=== PATIENT | female | born 1990 | race Caucasian/White ===

== ENCOUNTER → 2017-12-18 | Outpatient (CLI) | payer BC ==
[2017-12-18 10:27] LABS: BASO % 0.2 %; BASO ABS # 0.02 K/uL (0-0.2); HEMATOCRIT 37.9 % (37-47); HEMOGLOBIN 13.4 g/dL (12.0-16.0); IG# 0.03 K/uL (0.00-0.02); LYMPH % 28.7 %; LYMPH ABS # 3.01 K/uL (1.2-3.4); MEAN CELL VOLUME 84.2 fL (80-100); MEAN CORPUSCULAR HEMOGLOBIN 29.8 pg (25-34); MEAN CORPUSCULAR HGB CONC 35.4 g/dl (32-36); MONO % 7.2 %; MONO ABS # 0.75 K/uL (0.11-0.59); NEUT % 62.6 %; NEUT ABS # 6.57 K/uL (1.4-6.5); PLATELET COUNT 331 K/uL (130-400); RED CELL DISTRIBUTION WIDTH SD 39.3 fL (36.4-46.3); WHITE BLOOD COUNT 10.48 K/uL (4.8-10.8)
== END | disposition home or self-care (01) ==
LOC: C.LAB1850 09:07 → MERGE 09:07
PROVIDERS: ATTEND Obstetrics & Gynecology
DX: Z34.01 Encounter for supervision of normal first pregnancy, first trimester (principal); Z3A.00 Weeks of gestation of pregnancy not specified

== ENCOUNTER → 2017-12-18 | Outpatient (CLI) | payer BC | END | disposition home or self-care (01) | LOC: MERGE 13:16 → C.LABSPEC 13:16 | PROVIDERS: ATTEND Obstetrics & Gynecology | DX: Z34.01 Encounter for supervision of normal first pregnancy, first trimester (principal); Z3A.00 Weeks of gestation of pregnancy not specified ==

== ENCOUNTER → 2018-02-26 | Outpatient (CLI) | payer OTHER | END | disposition home or self-care (01) | LOC: C.LAB1850 07:32 | PROVIDERS: ATTEND Obstetrics & Gynecology | DX: O28.1 Abnormal biochemical finding on antenatal screening of mother (principal) ==

== ENCOUNTER 2018-08-06 07:24 | Inpatient (IN) ==
[2018-08-06] MEDS ORDERED: OXYTOCIN 30 UNITS/500 ML BAG IV PRN ×2 (07:49→07:51)
[2018-08-06] MEDS ORDERED: LACTATED RINGER'S 1,000 ML IV PRN ×3 (07:49→12:54)
[2018-08-06 08:12] LABS: Hematocrit (blood only) 34.3 % (37-47); Hemoglobin 11.6 g/dL (12.0-16.0); Mean Corpuscular Volume 84.9 fL (80-100); Mean Platelet Volume 12.3 fL (7.4-10.4); Platelet Count 190 K/uL (130-400); RDW Coefficient of Variation 14.9 % (11.5-14.5); RDW Standard Deviation 46.4 fL (36.4-46.3); Red Blood Count 4.04 M/uL (4.2-5.4); White Blood Count 11.62 K/uL (4.8-10.8)
[2018-08-06 08:13] LABS: Mean Corpuscular Hgb Conc 33.8 g/dL (32-36)
[2018-08-06] MEDS: LACTATED RINGER'S 1,000 ML IV SCH ×5 (08:13→20:11)
--- NOTE | 2018-08-06 08:42 | History & Physical Report ---
Date of Service August 06, 2018 Assessment & Plan (1) Encounter for induction of labor: induction of labor, /-2 on presentation to labor and delivery floor, still considering pain management plan (2) with 41 completed weeks gestation: planned induction of labor - fetus category one History of Present Illness Chief Complaint: Induction of labor Primary Care Provider: Violet Solano Filomena Mitchell is a 28 y.o with IUP at 41 2/7 weeks who presents to labor and delivery for induction of labor for prolonged /late term . She had patiño balloon placed here last night and had patiño balloon fall out once getting onto labor and delivery floor this morning. She reports some vaginal spotting overnight, reports she feels baby moving, has not had contractions. She reports she was treated for a UTI about 1.5 months ago with a 5 day course of Macrobid, otherwise no other complications noted. Labs: O+/ab-/rubella immune/rpr non-reactive/hepB negative/gtt x 2 normal/ declined quad screen/GBS negative Family History (non-biological): Spouse - healthy/unremarkable; Spouse sister - DM1; Spouse's grandmother - colon cancer; Spouse's Aunt - amado's disease Allergies Allergy/AdvReac Type Severity Reaction Status Date / Time amoxicillin Allergy Rash Verified 07/21/18 09:50 Penicillins Allergy Rash Verified 07/21/18 09:49 Home Medications Home Medications Medication Instructions Recorded Confirmed Type PNV cmb#95-ferrous fumarate-FA 1 tabs PO DAILY 08/05/18 08/06/18 History [] Patient History Medical History Anxiety and depression history of, no medications currently Surgical History [place] teeth extracted Social History marital status: Current Living Situation: Spouse Other Information That Helps Us Care for You: No Feels Safe at Home: Yes Smoking Status: Never smoker Do You Dip or Chew Tobacco: No Second Hand Exposure: No Tobacco Cessation Education Requested by Patient: No Hx Alcohol Use: No Hx Substance Use: No Beliefs That Will Affect Care: None Preferred Language: Liberian Communication Ability: Effective Business Support Professional Required: No 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, no abnormal paps Review of Systems All systems reviewed & are unremarkable except as noted in HPI & below Physical Exam 2 Vital Signs (Past 24 Hours): Last Vital Signs Temp 36.9 C 08/06/18 07:45 Pulse 100 H 08/06/18 07:45 Resp 20 08/06/18 07:45 BP 125/75 08/06/18 07:45 Constitutional: WD/WN, vitals as above Respiratory: normal respiratory effort, lungs clear to auscultation Cardiovascular: RRR, no murmur, no edema Gastrointestinal (Abdomen): Percussion/Palpation: abdomen nontender gravid Neurologic: moves all extremities and awake Psychiatric: Affect: euthymic affect Genitourinary: OB Exam Monitor Tracing: + external FHT monitor used and + category I Cervix exam performed by Dr. Estevez - 4cm dilation/60% effacement/ -2 station Code Status & VTE Plan Code Status Full code Monitoring External Monitor Baseline 145 with moderate variability, accels present, no decels Tocodynamometer mild irregular contractions Supervising Physician Co-Signing Physician Notes Resident Physician Supervision Note: I was present with Dr. Livingston during the history and exam. I discussed the case with the resident and agree with the findings and plan as documented in the note. Any exceptions or clarifications are listed here: Induction for postdates , uncomplicated , gbs neg. Patiño fell out this am and /-2. Fetus category one. Plan pitocin augmentation, arom as appropriate, epidural on request. Anticipate . Documented By: Isamar Estevez MD, FACOG
--- NOTE | 2018-08-06 09:15 | History & Physical Report ---
Date of Service August 06, 2018 Assessment & Plan (1) Encounter for induction of labor: induction of labor, /-2 on presentation to labor and delivery floor, still considering pain management plan (2) with 41 completed weeks gestation: planned induction of labor History of Present Illness Primary Care Provider: Violet Solano Filomena Mitchell is a 28 y.o with IUP at 41 2/7 weeks who presents to labor and delivery for induction of labor for prolonged /late term . She had patiño balloon placed here last night and had patiño balloon fall out once getting onto labor and delivery floor this morning. She reports some vaginal spotting overnight, reports she feels baby moving, has not had contractions. She reports she was treated for a UTI about 1.5 months ago with a 5 day course of Macrobid, otherwise no other complications noted. Labs: O+/ab-/rubella immune/rpr non-reactive/hepB negative/gtt x 2 normal/ declined quad screen/GBS negative Allergies Allergy/AdvReac Type Severity Reaction Status Date / Time amoxicillin Allergy Rash Verified 07/21/18 09:50 Penicillins Allergy Rash Verified 07/21/18 09:49 Home Medications Home Medications Medication Instructions Recorded Confirmed Type PNV cmb#95-ferrous fumarate-FA 1 tabs PO DAILY 08/05/18 08/06/18 History [] Patient History Social History marital status: Current Living Situation: Spouse Other Information That Helps Us Care for You: No Feels Safe at Home: Yes Smoking Status: Never smoker Do You Dip or Chew Tobacco: No Second Hand Exposure: No Tobacco Cessation Education Requested by Patient: No Hx Alcohol Use: No Hx Substance Use: No Beliefs That Will Affect Care: None Preferred Language: Belgian Communication Ability: Effective Plow Shaker Required: No Physical Exam 2 Vital Signs (Past 24 Hours): Last Vital Signs Temp 36.9 C 08/06/18 07:45 Pulse 80 08/06/18 09:07 Resp 20 08/06/18 07:45 BP 130/67 08/06/18 09:07 Constitutional: WD/WN, vitals as above Respiratory: normal respiratory effort, lungs clear to auscultation Cardiovascular: RRR, no murmur, no edema Gastrointestinal (Abdomen): Percussion/Palpation: abdomen nontender Neurologic: moves all extremities and awake Psychiatric: Affect: euthymic affect
[2018-08-06] MEDS ORDERED: INFLUENZA VIRUS QUAD VACCINE 0.5 ML SYR IM ONE (09:30)
[2018-08-06] MEDS ORDERED: INFLUENZA ADMINISTRATION CHARGE ONE (09:30)
[2018-08-06] MEDS ORDERED: ePHEDrine sulfate 50 MG/ML AMP ONE (12:12)
[2018-08-06] MEDS ORDERED: BUPIVACAINE 0.25% 30 ML VIAL ONE (12:12)
[2018-08-06] MEDS ORDERED: fentaNYL 2MCG/ML ROPIV 1.25MG/ML 100 ML BAG EPI ONE (12:13)
[2018-08-06] MEDS ORDERED: fentaNYL citrate 100 MCG/2 ML VIAL ONE (12:13)
--- NOTE | 2018-08-06 12:16 | Labor Progress Brief Note ---
Date of Service August 06, 2018 Subjective Notes contractions, rates 11/10 Assessment & Plan (1) with 41 completed weeks gestation: fetus category one (2) Encounter for induction of labor: Plan epidural then arom. Physical Exam 2 Vital Signs (Past 24 Hours): Last Vital Signs Temp 36.4 C L 08/06/18 11:00 Pulse 70 08/06/18 12:11 Resp 20 08/06/18 11:00 BP 125/71 08/06/18 12:11 Pulse Ox 91 08/06/18 12:11 Constitutional: WD/WN, vitals as above Genitourinary: cx--4/75/-2 toco--q2-4min efm--130s with mod variability, +accels , no decels
--- NOTE | 2018-08-06 12:39 | Anesthesiology Consultation ---
Date of Service August 06, 2018 Assessment & Plan (1) Encounter for pre-operative examination: Chart Review Chart Review: Acceptable Risk for Labor Epidural Consults Requested none ASA ASA2 Proposed Anesthesia Anesthesia Type: Labor Epidural and CSE Risk / Benefits Reviewed With: PT / POA / Parent / Guardian, Accepts Plan and Informed Consent Obtained NPO Date Last Intake of Fluids: 08/06/18 Time Last Intake of Fluids: 07:00 Date Last Intake of Solids: 08/06/18 Time Last Intake of Solids: 07:00 History Height/Weight Height: 4 ft 9 in Weight: 72.121 kg Allergies Allergy/AdvReac Type Severity Reaction Status Date / Time amoxicillin Allergy Rash Verified 07/21/18 09:50 Penicillins Allergy Rash Verified 07/21/18 09:49 Medications Home Medications Medication Instructions Recorded Confirmed Last Taken PNV cmb#95-ferrous fumarate-FA 1 tabs PO DAILY 08/05/18 08/06/18 08/06/18 06:30 [] Active Medications Generic Name Dose Route Start Last Admin Trade Name Freq PRN Reason Stop Dose Admin Lactated Ringer's 1,000 mls @ 125 mls/hr 08/06/18 08:00 08/06/18 12:38 Lr IV 08/08/18 07:59 999 mls/hr .Q8H CALDERON Administration Oxytocin 30 units in 500 mls @ 5 mls/hr 08/06/18 07:51 08/06/18 09:30 Pitocin IV 08/08/18 07:50 0.3 units/hr .Q24H PRN 5 mls/hr Labor Induction/Augmentation Titration Protocol 0.3 UNITS/HR Past Medical History Medical History Anxiety and depression history of, no medications currently Past Family History Family History Grandfather (Maternal) Lung cancer Father No problems noted. Mother No problems noted. Past Surgical History Surgical History [place] teeth extracted Past Anesthesia History No Hx of Anesthesia Complications and No Family Hx of Anesthesia Complications History of PONV No Motion Sickness Screening History of Motion Sickness: Yes Social History Smoking Status: Never smoker Do You Dip or Chew Tobacco: No Hx Alcohol Use: No Hx Substance Use: No Exercise / Class Metabolic Activity II 4-5 Yardwork/Stairs/Walk up hill Review of Systems no chest pain or sob Physical Exam Vital Signs Last Vital Signs Temp 36.4 C L 08/06/18 11:00 Pulse 81 08/06/18 12:36 Resp 20 08/06/18 11:00 BP 125/71 08/06/18 12:11 Pulse Ox 88 L 08/06/18 12:36 ENMT Mouth: no dentition abnormality Thyromental Distance: > or= 3.5 Finger Breadths Mallampati Class: II Neck normal visual inspection Respiratory normal respiratory effort Cardiovascular Rate/Rhythm: regular rate and regular rhythm Musculoskeletal Spine: no pain with cervical ROM Neurologic moves all extremities Psychiatric Orientation: alert and oriented x 3 Testing Laboratory Results 08/06/18 08:00 Blood Type O Positive 08/06/18 08:00 Antibody Screen NEGATIVE 08/06/18 08:00
[2018-08-06] MEDS ORDERED: ePHEDrine sulfate 50 MG/ML AMP IV PRN (12:54)
[2018-08-06] MEDS ORDERED: NALBUPHINE HCL INJ 10 MG/ML AMP IV PRN (12:54)
[2018-08-06] MEDS ORDERED: NALOXONE HCL 1 MG in SODIUM CHLORIDE 0.9% 1000ML 1,000 ML IV PRN (12:54)
[2018-08-06] MEDS ORDERED: NALOXONE HCL 0.4 MG/1 ML VIAL/CARP IV PRN (12:54)
[2018-08-06] MEDS ORDERED: DiphenhydrAMINE HCL 50 MG/ML VIAL IV PRN (12:54)
--- NOTE | 2018-08-06 14:18 | Labor Progress Brief Note ---
Date of Service August 06, 2018 Subjective comfortable after epidural. Assessment & Plan (1) with 41 completed weeks gestation: (2) Encounter for induction of labor: continue current plan. fetus category one. Physical Exam 2 Vital Signs (Past 24 Hours): Last Vital Signs Temp 37.1 C 08/06/18 14:00 Pulse 80 08/06/18 14:12 Resp 20 08/06/18 14:00 BP 120/75 08/06/18 14:12 Pulse Ox 99 08/06/18 14:11 Genitourinary: cx--4/75/-2 arom--clear toco--q2-4min, pit at 11 efm--130s with mod variability, accels present, no decels
--- NOTE | 2018-08-06 18:46 | Labor Progress Brief Note ---
Date of Service August 06, 2018 Subjective comfortable Assessment & Plan (1) with 41 completed weeks gestation: category one strip (2) Encounter for induction of labor: iupc placed, aim for >200mvus. Physical Exam 2 Vital Signs (Past 24 Hours): Last Vital Signs Temp 37.1 C 08/06/18 18:30 Pulse 75 08/06/18 18:41 Resp 20 08/06/18 18:30 BP 120/76 08/06/18 18:41 Pulse Ox 99 08/06/18 18:41 Constitutional: WD/WN, vitals as above Genitourinary: cx--75/-2 toco--q2-3min, pit at 15 iupc placed efm--150 with mod variability, accels present, no decels
[2018-08-06] MEDS ORDERED: LACTATED RINGER'S 500 ML IV ONE (18:47)
--- NOTE | 2018-08-06 22:03 | Labor Progress Brief Note ---
Date of Service August 06, 2018 Subjective comfortable Assessment & Plan (1) with 41 completed weeks gestation: category one (2) Encounter for induction of labor: continue pitocin to keep mvus greater than 2000 and adequate. Physical Exam 2 Vital Signs (Past 24 Hours): Last Vital Signs Temp 36.8 C 08/06/18 21:10 Pulse 73 08/06/18 21:56 Resp 18 08/06/18 21:10 BP 120/67 08/06/18 21:56 Pulse Ox 97 08/06/18 21:56 Constitutional: WD/WN, vitals as above Genitourinary: cx--4/100/-2 toco--q2-3min, pit at 21, mvus have recently within the last hour or so been > 200 efm--50s with moderate variability, accels to 170s, no decels
[2018-08-06] MEDS: fentaNYL 2MCG/ML ROPIV 1.25MG/ML 100 ML BAG EPI PRN (22:10)
[2018-08-07] MEDS: LACTATED RINGER'S 1,000 ML IV SCH ×2 (01:05→06:03)
[2018-08-07] MEDS: fentaNYL 2MCG/ML ROPIV 1.25MG/ML 100 ML BAG EPI PRN ×2 (01:05→06:09)
[2018-08-07] MEDS: ONDANSETRON INJ 2 MG/ML 2 ML VIAL IV PRN ×2 (01:10→06:44)
[2018-08-07] MEDS ORDERED: Nursing to Pharmacy Communication ONE (01:18)
--- NOTE | 2018-08-07 02:07 | Labor Progress Brief Note ---
Date of Service August 07, 2018 Subjective comfortable but feeling pressure Assessment & Plan (1) with 41 completed weeks gestation: fetus category one (2) Encounter for induction of labor: Will stop pitocin for a washout period of 20 min, then restart at 15 and go up again until achieve adequate contractions. Physical Exam 2 Vital Signs (Past 24 Hours): Last Vital Signs Temp 36.8 C 08/07/18 01:10 Pulse 75 08/07/18 02:01 Resp 18 08/07/18 01:29 BP 124/75 08/07/18 01:56 Pulse Ox 98 08/07/18 02:01 Constitutional: WD/WN, vitals as above Genitourinary: cx--4-5/100/-2 toco--q2-3min, pit at 30 for 2 hours, mvus still not adequate efm--150s wtih mod variability, accels present , no decels
--- NOTE | 2018-08-07 08:03 | Labor Progress Brief Note ---
Date of Service August 07, 2018 Subjective comfortable Assessment & Plan (1) Encounter for induction of labor: (2) Failure to progress in first stage of labor: Plan to proceed with c/s as now no change for 16 hours after arom and unable to get contractions in an adequate pattern. r/b/se of surgery discussed including the risks of anesthesia, bleeding, transfusion, infection, damage to surrounding structures, need for further surgery/hospitalization, injury to baby. Discussed other risks of surgery including heart attack , blood clot stroke and . Consent reviewed and signed. Patient has had borderline uop for the last several hours despite bolus and increased rate. Expect third spacing. Physical Exam 2 Vital Signs (Past 24 Hours): Last Vital Signs Temp 37.1 C 08/07/18 07:00 Pulse 90 08/07/18 07:57 Resp 18 08/07/18 07:00 BP 134/92 08/07/18 07:57 Pulse Ox 97 08/07/18 07:56 Constitutional: WD/WN, vitals as above Genitourinary: cx--4-5/100/-2 toco--q2-3, not close to adequate, pit at 30 for about 2 hrs. efm--150s with mod variability, accels to 170s, no decels
[2018-08-07] MEDS ORDERED: miSOPROStol 200 MCG TAB ONE (08:08)
[2018-08-07] MEDS ORDERED: CITRIC ACID/SODIUM CITRATE 15 ML UDC ONE (08:09)
[2018-08-07] MEDS ORDERED: CEFAZOLIN 2,000 MG in SYRINGE 0 ML IV STA (08:12)
[2018-08-07] MEDS ORDERED: CITRIC ACID/SODIUM CITRATE 15 ML UDC PO STA (08:13)
[2018-08-07] MEDS ORDERED: LACTATED RINGER'S 1,000 ML IV SCH ×2 (08:15→09:03)
[2018-08-07] MEDS ORDERED: LIDOCAINE/EPINEPHRINE 2% 1:200,000 20 ML SDV ONE (08:20)
--- NOTE | 2018-08-07 08:21 | Anesthesiology Consultation ---
Date of Service August 07, 2018 Assessment & Plan (1) Encounter for pre-operative examination: Chart Review Chart Review: Acceptable Risk for Surgery NPO Date Last Intake of Fluids: 08/06/18 Time Last Intake of Fluids: 07:00 Date Last Intake of Solids: 08/06/18 Time Last Intake of Solids: 07:00 History Surgery Operation Date: 08/07/18 08:00 Proposed Procedures p Section in LD - Isamar Estevez MD, FACOG Height/Weight Height: 4 ft 9 in Weight: 72.121 kg Allergies Allergy/AdvReac Type Severity Reaction Status Date / Time amoxicillin Allergy Rash Verified 07/21/18 09:50 Penicillins Allergy Rash Verified 07/21/18 09:49 Medications Home Medications Medication Instructions Recorded Confirmed Last Taken PNV cmb#95-ferrous fumarate-FA 1 tabs PO DAILY 08/05/18 08/06/18 08/06/18 06:30 [] Active Medications Generic Name Dose Route Start Last Admin Trade Name Freq PRN Reason Stop Dose Admin Lactated Ringer's 1,000 mls @ 125 mls/hr 08/06/18 08:00 08/07/18 07:09 Lr IV 08/08/18 07:59 175 mls/hr .Q8H CALDERON Infusion Oxytocin 30 units in 500 mls @ 30 mls/hr 08/06/18 07:51 08/07/18 07:09 Pitocin IV 08/08/18 07:50 1.8 units/hr .[id number] PRN 30 mls/hr Labor Induction/Augmentation Titration Protocol 1.8 UNITS/HR Lactated Ringer's 1,000 mls @ 999 mls/hr 08/07/18 08:15 08/07/18 08:21 Lr IV 08/07/18 09:15 999 mls/hr .Q1H1M CALDERON Administration Ondansetron HCl 4 mg 08/06/18 12:54 08/07/18 06:44 Zofran IV 08/07/18 12:53 4 mg Q6H PRN Administration Nausea And Vomiting Ropivacaine 100 ml 08/06/18 12:54 08/07/18 06:09 Epidural (L&D) EPI 08/07/18 12:53 100 ml PRN PRN Administration Pain R/T Labor Protocol Past Medical History Medical History Anxiety and depression history of, no medications currently Past Family History Family History Grandfather (Maternal) Lung cancer Father No problems noted. Mother No problems noted. Past Surgical History Surgical History [place] teeth extracted Social History Smoking Status: Never smoker Do You Dip or Chew Tobacco: No Hx Alcohol Use: No Hx Substance Use: No Physical Exam Vital Signs Last Vital Signs Temp 37.1 C 08/07/18 07:00 Pulse 69 08/07/18 08:21 Resp 18 08/07/18 07:00 BP 136/72 08/07/18 08:12 Pulse Ox 95 08/07/18 08:21 Testing Laboratory Results 08/06/18 08:00 Blood Type O Positive 08/06/18 08:00 Antibody Screen NEGATIVE 08/06/18 08:00
[2018-08-07] MEDS ORDERED: ONDANSETRON INJ 2 MG/ML 2 ML VIAL ONE ×2 (09:23→09:37)
[2018-08-07] MEDS ORDERED: DEXAMETHASONE SOD INJ 4 MG/ML VIAL ONE (09:23)
[2018-08-07] MEDS ORDERED: OXYTOCIN 10 UNITS/ML VIAL ONE (09:23)
[2018-08-07] MEDS ORDERED: MoRPHine SULFATE PF 1 MG/ML 10 ML AMP/VIAL ONE (09:24)
[2018-08-07] MEDS ORDERED: DIPHTHERIA/TETANUS/PERTUSSIS 0.5 ML SYR/VIAL IM ONE (09:34)
[2018-08-07] MEDS ORDERED: HYDROCORTISONE ACETATE 25 MG SUPP PR PRN (09:34)
[2018-08-07] MEDS ORDERED: MAGNESIUM HYDROXIDE SUSP 30 ML UDC PO PRN (09:34)
[2018-08-07] MEDS ORDERED: SENNA 8.6 MG TAB PO PRN (09:34)
[2018-08-07] MEDS ORDERED: SUPERCREAM 0.870% 15 GM JAR EXT PRN (09:34)
[2018-08-07] MEDS ORDERED: BENZOCAINE 20% AER SPR 82.5 GM CAN EXT PRN (09:34)
[2018-08-07] MEDS ORDERED: miSOPROStol 200 MCG TAB PR ONE (09:40)
--- NOTE | 2018-08-07 09:42 | Post Operative Brief Note ---
Immediate Post Op Note v1 Date of Surgery August 07, 2018 Pre & Post Diagnosis preop diagnosis at 41 weeks failure to induce Postop diagnosis same Operation Date: 08/07/18 08:00 <No data on this case meets the specified criteria> Procedure procedure--primary low transverse Operation Date: 08/07/18 08:00 <No data on this case meets the specified criteria> Surgeon Isamar Estevez MD, FACOG Manager Merchandising Dr. horowitz Estimated Blood Loss 800 Findings Consistent with Post-Op Diagnosis
[2018-08-07] MEDS ORDERED: OXYTOCIN 20 UNITS in LACTATED RINGER'S 1,000 ML IV SCH (10:00)
[2018-08-07] MEDS ORDERED: NALOXONE HCL 0.4 MG/1 ML VIAL/CARP IV PRN (10:27)
[2018-08-07] MEDS ORDERED: ONDANSETRON INJ 2 MG/ML 2 ML VIAL IV PRN (10:27)
[2018-08-07] MEDS ORDERED: DiphenhydrAMINE HCL 50 MG/ML VIAL IV PRN (10:27)
[2018-08-07] MEDS ORDERED: NALOXONE HCL 0.08 MG in SYRINGE 1.8 ML IV PRN (10:27)
[2018-08-07] MEDS ORDERED: MoRPHine SULFATE 2 MG/ML CARP IV PRN (10:27)
[2018-08-07] MEDS ORDERED: LACTATED RINGER'S 500 ML IV PRN (10:27)
[2018-08-07] MEDS ORDERED: NALBUPHINE HCL INJ 10 MG/ML AMP IV PRN (10:27)
[2018-08-07] MEDS ORDERED: ePHEDrine sulfate 50 MG/ML AMP IV PRN (10:27)
[2018-08-07] MEDS ORDERED: MoRPHine SULFATE PF 1 MG/ML 10 ML AMP/VIAL INT SPINAL SCH (10:27)
[2018-08-07] MEDS ORDERED: MEPERIDINE HCL 25 MG/ML CARP IV PRN (10:27)
[2018-08-07] MEDS ORDERED: NALOXONE HCL 1 MG in SODIUM CHLORIDE 0.9% 1000ML 1,000 ML IV PRN (10:27)
--- NOTE | 2018-08-07 10:29 | Operative Report ---
DATE OF OPERATION: 08/07/2018 PREOPERATIVE DIAGNOSES: 1. Intrauterine at 41 and 2/7 weeks. 2. Failure to induce. POSTOPERATIVE DIAGNOSES: 1. Intrauterine at 41 and 2/7 weeks. 2. Failure to induce. PROCEDURE: Primary low transverse section. SURGEON: Isamar Estevez MD BLENDER CONVEYOR OPERATOR: April Ruiz MD ESTIMATED BLOOD LOSS: 800 mL. FLUIDS: 1000 mL. URINE OUTPUT: 300 mL of concentrated urine drained from the bladder at the end of the procedure. ANESTHESIA: Epidural. INDICATIONS: Filomena is a 28-year-old 1, para 0 who presented for induction at 41 and 1/7 weeks. She underwent a May bulb for cervical ripening, when it was removed, she was 4 cm and 80% effaced. I could not get her induced despite 16 hours of ruptured membranes and Pitocin augmentation. The patient had an IUPC and I could never get her into an adequate contraction pattern. FINDINGS: Viable male infant in LOT presentation, 9 pounds 3 ounces, Apgars pending. Normal uterus, tubes, and ovaries were noted bilaterally. There was a right paratubal cyst. Apgars pending. DESCRIPTION OF PROCEDURE: The patient was taken to the operating room where she was identified verbally and by bracelet. She was transferred to the operating table and placed in a leftward tilt. A May catheter had previously been placed. Her epidural was dosed. She was prepped and draped in normal sterile fashion. Her epidural was found to be adequate. A Pfannenstiel skin incision was made with a knife. This was taken down to the underlying layer of fascia with the knife. Bleeding was attended to with Bovie electrocautery. The fascia was incised in the midline with the knife and taken out laterally with scissors. The superior edge of the fascial incision was grasped, elevated and the underlying layer of rectus muscle was taken off bluntly and with scissors. In a similar fashion, the inferior edge of the fascial incision was grasped, elevated and the underlying layer of rectus muscle was taken off bluntly and with scissors. The muscles were bluntly in the midline and the peritoneum was entered bluntly. It was taken superiorly and inferiorly with good visualization of the bladder. The incision was stretched, the bladder blade was placed. Vesicouterine peritoneum was identified and entered with scissors and taken out laterally with scissors. The bladder flap was created digitally. The bladder blade was replaced. A hysterotomy incision was made with the knife. Clear fluid was noted upon entering the uterus. The hysterotomy incision was stretched with the hat stock laminating machine operator's fingers. The hat stock laminating machine operator's hand was placed into the incision and the head was severely stuck within the pelvis; however, it was able to be removed atraumatically up into the incision. The head was delivered through the incision. We tried 1 attempt with the vacuum with 1 pop-off and then we were able to deliver the head through the incision. There was no nuchal cord and the rest of the was then delivered by rotating the and eventually delivering the anterior arm. There was immediate cry on the operative field. The nose and mouth were bulb suctioned. The cord was clamped and cut. The infant was handed off to waiting staff development coordinator rn for drying and attention. The placenta was manually extracted. The uterus was cleared of all clot debris and trailing membranes with moistened laparotomy sponges and ring forceps. The hysterotomy incision was repaired in 2 layers, the first a running locked layer of 0 Vicryl, the second in an imbricating layer. Hemostasis was fairly good from the incision at that point in time. There was some uterine atony, which was attended to with IV Pitocin and direct placement of Hemabate into the uterine muscle. The posterior cul-de-sac was cleared of all clot and debris. The tubes and ovaries were normal. There was a right paratubal cyst. The uterus was reanteriorized. There was some oozing at the right edge of the incision which was taken care of with a [id number] suture of 0 Vicryl and then Mary Kay was placed over the incision after hemostasis was noted to be good. The rectus muscles were reapproximated in the midline with interrupted sutures of 0 Vicryl. The rectus muscles were then examined and found to be hemostatic. The fascia was repaired with 0 Vicryl starting at the corners and meeting in the midline. The subcuticular tissue was copiously irrigated. Bleeding was attended to with Bovie electrocautery and the skin was then closed with a subcuticular stitch of 4-0 Vicryl. All sponge, lap and needle counts were correct x2. The patient tolerated the procedure well. Before she was transferred to the bed, 800 mcg of Cytotec was placed vaginally. The patient was transferred to recovery and mother and baby doing well at the end of the delivery. I attest to the content of the Intraoperative Record and any orders documented therein. Any exception s are noted below.
[2018-08-07] MEDS ORDERED: DC INTRASPINAL MORPHINE SCH (10:30)
[2018-08-07] MEDS ORDERED: SODIUM CHLORIDE 0.9% 1000ML 1,000 ML IV SCH (10:30)
[2018-08-07] MEDS ORDERED: NO NARCOTICS OR SEDATIVES SCH (10:30)
[2018-08-07] MEDS ORDERED: MoRPHine SULFATE 2 MG/ML CARP ONE (10:35)
[2018-08-07] MEDS ORDERED: ARISTA ABSORBABLE HEMOSTAT 3GM TOP ONE (11:01)
[2018-08-07] MEDS ORDERED: CARBOPROST TROMETHAMINE 250 MCG/ML AMPUL IM ONE (11:01)
[2018-08-07] MEDS ORDERED: ACETAMINOPHEN 1,000 MG/100 ML VIAL IV ONE (11:41)
--- NOTE | 2018-08-07 11:47 | Anesthesiology Progress Note ---
Date of Service August 07, 2018 Anesthesia Post Procedure Vital Signs Vital Signs: Temp Pulse Resp BP Pulse Ox 08/07/18 11:39 90 157/82 H 08/07/18 11:36 90 90 08/07/18 11:33 91 H 89 L 08/07/18 11:31 88 90 08/07/18 11:28 82 141/71 H 08/07/18 11:26 93 H 90 08/07/18 11:23 38.7 C H 08/07/18 11:21 84 89 L 08/07/18 11:18 86 141/67 H 08/07/18 11:16 90 90 08/07/18 11:11 90 91 08/07/18 11:09 89 129/82 08/07/18 11:06 87 90 08/07/18 11:01 88 92 08/07/18 10:58 86 128/62 08/07/18 10:56 85 92 08/07/18 10:51 88 93 08/07/18 10:50 86 18 141/67 H 90 08/07/18 10:48 86 148/67 H 94 08/07/18 10:46 92 H 92 08/07/18 10:43 92 H 93 08/07/18 10:41 94 H 93 08/07/18 10:40 88 18 92 08/07/18 10:38 89 149/69 H 08/07/18 10:37 92 H 92 08/07/18 10:36 90 96 08/07/18 10:31 90 98 08/07/18 10:30 88 18 92 08/07/18 10:26 99 H 98 08/07/18 10:21 96 H 81 L 08/07/18 10:20 88 18 92 08/07/18 10:16 105 H 98 08/07/18 10:11 108 H 98 08/07/18 10:10 88 18 93 08/07/18 10:06 115 H 96 08/07/18 10:01 117 H 93 08/07/18 10:00 88 18 93 08/07/18 09:59 218 H 170/68 H 08/07/18 09:57 117 H 93 08/07/18 09:56 109 H 167/72 H 99 08/07/18 09:53 129 H 179/122 H 08/07/18 09:51 122 H 93 08/07/18 09:50 37 C 18 08/07/18 08:43 82 137/69 08/07/18 08:40 79 136/78 08/07/18 08:38 72 149/80 H 08/07/18 08:36 71 151/81 H 97 08/07/18 08:31 71 139/77 96 08/07/18 08:26 71 147/79 H 96 08/07/18 08:21 69 95 08/07/18 08:16 70 96 08/07/18 08:12 67 136/72 08/07/18 08:11 69 97 08/07/18 08:06 76 97 08/07/18 08:01 72 97 08/07/18 07:57 90 134/92 08/07/18 07:56 85 97 08/07/18 07:55 90 88 L 08/07/18 07:51 77 96 08/07/18 07:46 69 92 08/07/18 07:42 67 133/64 08/07/18 07:41 68 94 08/07/18 07:36 66 94 08/07/18 07:31 71 94 08/07/18 07:27 65 115/64 08/07/18 07:26 68 96 08/07/18 07:21 69 95 08/07/18 07:16 69 96 08/07/18 07:11 70 128/73 94 08/07/18 07:06 70 95 08/07/18 07:01 69 93 08/07/18 07:00 37.1 C 18 08/07/18 06:57 71 135/74 08/07/18 06:56 70 93 08/07/18 06:51 67 94 08/07/18 06:46 69 96 08/07/18 06:41 68 127/74 96 08/07/18 06:36 70 97 08/07/18 06:31 75 95 08/07/18 06:26 74 127/73 95 08/07/18 06:21 78 95 08/07/18 06:16 73 95 08/07/18 06:11 71 129/76 97 08/07/18 06:06 86 97 08/07/18 06:01 76 98 08/07/18 06:00 18 08/07/18 05:56 74 124/73 98 08/07/18 05:51 87 98 08/07/18 05:46 91 H 96 08/07/18 05:41 76 122/68 94 08/07/18 05:36 77 94 08/07/18 05:31 73 94 08/07/18 05:27 74 126/71 08/07/18 05:26 76 95 08/07/18 05:21 76 96 08/07/18 05:16 76 96 08/07/18 05:15 37.0 C 18 08/07/18 05:12 77 126/71 08/07/18 05:11 76 97 08/07/18 05:06 86 96 08/07/18 05:01 78 94 08/07/18 04:56 75 112/62 94 08/07/18 04:51 78 95 08/07/18 04:46 73 93 08/07/18 04:41 81 117/66 93 08/07/18 04:36 75 92 08/07/18 04:31 73 93 08/07/18 04:27 72 119/62 08/07/18 04:26 73 93 08/07/18 04:21 75 93 08/07/18 04:16 71 93 08/07/18 04:12 71 105/56 L 08/07/18 04:11 76 96 08/07/18 04:06 74 97 08/07/18 04:01 72 97 08/07/18 03:56 67 123/65 94 08/07/18 03:51 67 93 08/07/18 03:46 67 94 08/07/18 03:41 74 127/67 94 08/07/18 03:36 69 93 08/07/18 03:31 67 93 08/07/18 03:30 16 08/07/18 03:26 67 121/64 94 08/07/18 03:21 66 93 08/07/18 03:16 66 94 08/07/18 03:15 36.8 C 08/07/18 03:12 69 118/62 08/07/18 03:11 69 94 08/07/18 03:06 67 94 08/07/18 03:01 66 94 05 02:57 65 132/71 08/07/18 02:56 68 97 05 02:51 70 97 12/19 02:46 69 96 01/05/19 02:42 73 119/72 08/07/18 02:41 73 97 08/07/18 02:36 68 94 08/07/18 02:31 67 94 08/07/18 02:30 18 08/07/18 02:26 66 121/67 94 08/07/18 02:21 66 95 08/07/18 02:16 65 96 08/07/18 02:12 62 130/69 08/07/18 02:11 65 97 08/07/18 02:06 69 97 08/07/18 02:01 75 98 08/07/18 01:56 74 124/75 97 08/07/18 01:51 65 94 08/07/18 01:46 68 96 08/07/18 01:42 66 128/74 08/07/18 01:41 81 97 08/07/18 01:36 70 96 08/07/18 01:31 70 98 08/07/18 01:29 18 08/07/18 01:27 73 138/77 08/07/18 01:26 69 98 08/07/18 01:21 65 97 08/07/18 01:16 74 96 08/07/18 01:13 64 132/69 08/07/18 01:11 68 98 08/07/18 01:10 36.8 C 20 08/07/18 01:06 71 98 08/07/18 01:01 71 99 08/07/18 00:56 69 127/68 96 08/07/18 00:51 68 97 08/07/18 00:46 69 98 08/07/18 00:42 70 133/71 08/07/18 00:41 69 97 08/07/18 00:36 72 97 08/07/18 00:31 69 97 08/07/18 00:27 69 132/73 08/07/18 00:26 71 98 08/07/18 00:21 69 98 08/07/18 00:16 73 99 08/07/18 00:11 80 120/81 98 08/07/18 00:06 77 100 08/07/18 00:01 74 18 98 08/06/18 23:57 78 125/82 08/06/18 23:56 79 99 08/06/18 23:51 85 98 08/06/18 23:49 87 88 L 01/04/19 23:46 84 100 08/06/18 23:42 84 126/92 08/06/18 23:41 85 98 08/06/18 23:36 70 100 08/06/18 23:31 66 98 08/06/18 23:26 67 131/77 98 08/06/18 23:21 66 98 08/06/18 23:16 64 98 08/06/18 23:12 63 133/75 08/06/18 23:11 66 100 08/06/18 23:06 66 98 08/06/18 23:01 68 98 08/06/18 23:00 37.0 C 18 08/06/18 22:57 69 133/73 08/06/18 22:56 70 99 08/06/18 22:51 73 99 08/06/18 22:46 72 98 08/06/18 22:41 69 124/71 96 08/06/18 22:36 68 98 08/06/18 22:31 71 98 08/06/18 22:27 69 128/75 08/06/18 22:26 72 99 08/06/18 22:21 80 96 08/06/18 22:16 72 99 08/06/18 22:12 76 123/72 08/06/18 22:11 71 98 08/06/18 22:06 74 97 08/06/18 22:01 70 96 08/06/18 22:00 18 08/06/18 21:56 73 120/67 97 08/06/18 21:51 75 97 08/06/18 21:46 76 99 08/06/18 21:42 75 118/69 08/06/18 21:41 75 97 08/06/18 21:36 73 96 08/06/18 21:31 73 97 08/06/18 21:28 74 119/67 08/06/18 21:26 80 98 08/06/18 21:21 78 97 08/06/18 21:16 83 97 08/06/18 21:12 102 H 115/77 08/06/18 21:11 83 97 08/06/18 21:10 36.8 C 18 08/06/18 21:06 82 97 08/06/18 21:01 80 98 08/06/18 21:00 20 08/06/18 20:58 75 116/73 08/06/18 20:56 83 97 08/06/18 20:51 75 95 08/06/18 20:46 75 96 08/06/18 20:42 71 115/72 08/06/18 20:41 72 97 08/06/18 20:36 74 97 08/06/18 20:35 85 86 L 08/06/18 20:31 77 98 08/06/18 20:30 20 08/06/18 20:27 79 124/75 08/06/18 20:26 78 98 08/06/18 20:21 83 98 08/06/18 20:16 77 97 08/06/18 20:12 82 120/77 08/06/18 20:11 79 97 08/06/18 20:06 87 98 08/06/18 20:01 88 97 08/06/18 20:00 37.1 C 20 08/06/18 19:58 92 H 131/82 08/06/18 19:56 81 98 08/06/18 19:51 81 97 08/06/18 19:46 71 97 08/06/18 19:42 81 129/81 08/06/18 19:41 86 99 08/06/18 19:36 84 98 08/06/18 19:31 73 98 08/06/18 19:30 18 08/06/18 19:27 86 121/78 08/06/18 19:26 79 98 08/06/18 19:21 81 97 08/06/18 19:16 82 98 08/06/18 19:12 76 127/75 08/06/18 19:11 80 98 08/06/18 19:06 81 98 08/06/18 19:01 80 99 08/06/18 19:00 20 08/06/18 18:58 74 117/75 08/06/18 18:56 81 99 08/06/18 18:51 89 96 08/06/18 18:46 73 98 08/06/18 18:41 75 120/76 99 08/06/18 18:36 78 99 08/06/18 18:31 86 99 08/06/18 18:30 37.1 C 20 08/06/18 18:28 92 H 119/76 08/06/18 18:26 88 99 08/06/18 18:21 83 99 08/06/18 18:16 90 99 08/06/18 18:12 75 126/67 08/06/18 18:11 82 99 08/06/18 18:06 86 100 08/06/18 18:01 81 99 08/06/18 18:00 20 08/06/18 17:57 75 122/58 L 08/06/18 17:56 81 98 08/06/18 17:51 83 97 08/06/18 17:46 76 99 08/06/18 17:43 81 115/67 08/06/18 17:41 74 97 08/06/18 17:36 69 100 08/06/18 17:31 77 100 08/06/18 17:30 36.8 C 18 08/06/18 17:28 78 111/57 L 08/06/18 17:26 74 100 08/06/18 17:21 76 100 08/06/18 17:16 84 98 08/06/18 17:13 69 104/61 08/06/18 17:11 77 96 08/06/18 17:06 84 97 08/06/18 17:01 73 99 08/06/18 17:00 20 08/06/18 16:58 71 104/55 L 08/06/18 16:56 91 H 98 08/06/18 16:51 89 97 08/06/18 16:46 90 97 08/06/18 16:43 77 114/61 08/06/18 16:41 79 97 08/06/18 16:36 75 98 08/06/18 16:31 69 97 08/06/18 16:30 18 08/06/18 16:27 71 114/73 08/06/18 16:26 70 97 08/06/18 16:21 73 97 08/06/18 16:16 70 97 08/06/18 16:12 70 115/64 08/06/18 16:11 66 96 08/06/18 16:06 70 95 08/06/18 16:01 74 96 08/06/18 16:00 20 08/06/18 15:58 65 113/67 08/06/18 15:56 80 96 08/06/18 15:51 68 96 08/06/18 15:46 67 95 08/06/18 15:42 80 98/64 L 08/06/18 15:41 75 96 08/06/18 15:36 72 96 08/06/18 15:31 71 96 08/06/18 15:30 36.7 C 20 08/06/18 15:28 73 113/57 L 08/06/18 15:26 74 96 08/06/18 15:21 83 97 08/06/18 15:16 76 98 08/06/18 15:14 71 117/58 L 08/06/18 15:11 74 96 08/06/18 15:06 78 96 08/06/18 15:01 83 96 08/06/18 15:00 18 08/06/18 14:58 73 109/67 08/06/18 14:56 78 96 08/06/18 14:51 71 97 08/06/18 14:46 71 96 08/06/18 14:44 71 118/67 08/06/18 14:41 81 96 08/06/18 14:36 74 96 08/06/18 14:31 82 98 08/06/18 14:30 20 08/06/18 14:27 80 112/75 08/06/18 14:26 80 96 08/06/18 14:21 83 96 08/06/18 14:16 71 98 08/06/18 14:12 80 120/75 08/06/18 14:11 84 99 08/06/18 14:06 80 98 08/06/18 14:01 90 98 08/06/18 14:00 37.1 C 20 08/06/18 13:57 78 94/56 L 08/06/18 13:56 80 98 08/06/18 13:51 73 98 08/06/18 13:46 71 96 08/06/18 13:42 86 96/58 L 08/06/18 13:41 81 97 08/06/18 13:36 95 H 98 08/06/18 13:31 74 97 08/06/18 13:30 18 08/06/18 13:28 74 110/59 L 08/06/18 13:26 73 97 08/06/18 13:21 74 99 08/06/18 13:16 73 98 08/06/18 13:11 93 H 108/58 L 96 08/06/18 13:09 81 99/57 L 08/06/18 13:07 83 92/58 L 08/06/18 13:06 74 96 08/06/18 13:05 37.1 C 79 20 100/60 08/06/18 13:03 79 105/60 08/06/18 13:01 81 105/58 L 96 08/06/18 13:00 37.1 C 18 08/06/18 12:59 77 103/57 L 08/06/18 12:57 76 18 102/57 L 08/06/18 12:56 79 104/58 L 97 08/06/18 12:54 91 H 129/72 08/06/18 12:51 80 98 08/06/18 12:46 95 H 98 08/06/18 12:41 75 98 08/06/18 12:36 81 88 L 08/06/18 12:31 75 92 08/06/18 12:26 73 91 08/06/18 12:22 85 86 L 08/06/18 12:21 86 88 L 08/06/18 12:16 83 90 08/06/18 12:11 70 125/71 91 Pain Intensity Abdomen: Pain Intensity: 4 Notes Mental Status: alert / awake / arousable and participated in evaluation Nausea / Vomiting: adequately controlled Pain: adequately controlled Airway Patency, RR, SpO2: stable & adequate BP & HR: stable & adequate Hydration State: stable & adequate Neuraxial Anesthesia: was administered and sensory block resolved Anesthetic Complications: no major complications apparent and Pt Satisfied with anesthetic care Notes: The patient is doing well. She is moving her sensory and motor block have resolved. Her pain is well controlled. I informed the patient and her of the signs and symptoms of epidural abscess/hematoma including but not limited to sudden loss of bowel or bladder continence, sudden numbness or weakness, severe back pain, abnormal discharge from the back or redness, and fever. I instructed the patient to come to the ED with any of these symptoms and to make the ED aware that they had a recent epidural. The patient understands and agrees.
[2018-08-07] MEDS: SIMETHICONE 80 MG CHEW PO SCH ×3 (17:24→21:50)
[2018-08-07] MEDS ORDERED: KETOROLAC 30 MG/ML VIAL IV ONE (19:30)
--- NOTE | 2018-08-07 20:28 | Communication Note ---
Date of Service: August 07, 2018 Patient seen and examined given requirement of 4L NCO2 to keep sats 95%, when she was only on 2L prior. Also, patient recently ate a large amount of food and then became nauseated and had emesis. Now feeling a bit better in that regard. Patient denies CP, SOB or respiratory distress, she "feels normal." Pain is not very well controlled per patient, but was just given 30mg IV Toradol about ten minutes before I talked with her, so hoping for better relief soon. Heron has been small, RN who is at bedside agrees. Patient denies calf or leg pain and says the spinal has worn off pretty much completely, she feels her feet normally with SCD's squeezing or doctor touching her feet. Family at bedside comments that the urine catheter has been filling much faster lately. Exam: Vitals reviewed. At time when I am in room, pulse 82 and pulse ox 95% on 4L NCO2 BP 120/75, P66 Gen: Alert, NAD. Speaking normally, breathing without undue effort, and wearing NCO2. Cor: RRR, no r/m/g. Lungs: mild crackles at bilateral bases posteriorly. No abnormal sounds when auscultated anteriorly. Abd: Distended but nontender. Fundus palpated 1cm below umbilicus, firm and nontender. Dressing in place c/d/i. Extremities with trace equal bilateral edema, SCD's opened to allow flexion of foot and palpation of calf; normal bilaterally. May in place, draining clear yellow. I/O: nearly 3L positive for visit so far. Plan: Pulm edema due to third spacing after prolonged high dose pitocin use and section this morning. Lots of tissue edema noted during delivery and urine output was decreased around the time of delivery. It is now improving rapidly, but patient has a lot of extra fluid on board. Stop IV fluids now, continue to sip oral fluids and provide antiemetic prn. Urine output now well above adequate and may need time to diurese. Will get CXR now too given crackles at bases. Doubt DVT/PE at this time so will continue SCDs.
[2018-08-07 21:12] LABS: Hematocrit (blood only) 32.9 % (37-47); Hemoglobin 11.1 g/dL (12.0-16.0)
--- NOTE | 2018-08-07 21:49 | XRay Report ---
XR chest 1V portable CLINICAL HISTORY: decreased O2 saturation, , ? fluid overl COMPARISON STUDY: No previous studies for comparison. FINDINGS: Mild cardia megaly. Parenchymal prominence of the mid to lower lung regions bilaterally. Pu lmonary apices are clear. IMPRESSION: Potential developing pulmonary edema The above report was generated using voice recognition software. It may contain grammatical, syntax or spelling errors. Electronically signed by: Ramesh Vásquez M.D. 08/07/2018 9:47 PM
[2018-08-07] MEDS: DOCUSATE SODIUM 100 MG CAP PO SCH (21:50)
[2018-08-08] MEDS ORDERED: KETOROLAC TROMETHAMINE 15 MG/ML VIAL IV STA (03:37)
[2018-08-08] MEDS ORDERED: KETOROLAC TROMETHAMINE 15 MG/ML VIAL IV PRN (03:38)
[2018-08-08] MEDS ORDERED: MEPERIDINE HCL 50 MG/ML CARP IV PRN (04:27)
[2018-08-08] MEDS ORDERED: OXYCODONE/ACETAMINOPHEN 5mg/325mg TAB PO PRN (04:27)
[2018-08-08] MEDS ORDERED: PROMETHAZINE HCL 25 MG in SODIUM CHLORIDE 0.9% 50 ML IV PRN ×2 (04:27→17:14)
[2018-08-08] MEDS ORDERED: ONDANSETRON INJ 2 MG/ML 2 ML VIAL IV PRN (04:27)
[2018-08-08] MEDS ORDERED: DiphenhydrAMINE HCL 50 MG/ML VIAL IV PRN (04:27)
[2018-08-08 06:41] LABS: Basophils # (auto) 0.01 K/uL (0-0.2); Basophils % (auto) 0.1 %; Eosinophils # (auto) 0.01 K/uL (0-0.5); Eosinophils % (auto) 0.1 %; Hematocrit (blood only) 31.4 % (37-47); Hemoglobin 10.4 g/dL (12.0-16.0); Immature Granulocytes # (auto) 0.06 K/uL (0.00-0.02); Immature Granulocytes % (auto) 0.4 %; Lymphocytes # (auto) 1.01 K/uL (1.2-3.4); Lymphocytes % (auto) 6.1 %; Mean Corpuscular Hgb Conc 33.1 g/dL (32-36); Mean Corpuscular Volume 85.1 fL (80-100); Mean Platelet Volume 11.8 fL (7.4-10.4); Monocytes # (auto) 0.47 K/uL (0.11-0.59); Monocytes % (auto) 2.9 %; Neutrophils # (auto) 14.87 K/uL (1.4-6.5); Neutrophils % (auto) 90.4 %; Platelet Count 158 K/uL (130-400); RDW Coefficient of Variation 15.1 % (11.5-14.5); RDW Standard Deviation 46.9 fL (36.4-46.3); Red Blood Count 3.69 M/uL (4.2-5.4); White Blood Count 16.43 K/uL (4.8-10.8)
--- NOTE | 2018-08-08 07:25 | Obstetrical Progress Note ---
Date of Service August 08, 2018 Assessment & Plan (1) Failure to progress in first stage of labor: POD#1 from [facility] for failed induction and large in this very petite female. High doses of pitocin were utilized in hopes of inducing labor, which may have contributed to significant third spacing and ultimately pulmonary edema. Fluids stopped, and patient has continued to diurese, and oxygen saturations are improved from last night while oxygen requirements are decreasing. Continue to wean off NCO2 as tolerated. Patient also is suspicious for ileus and will take diet to clears this morning and encourage ambulation when able. Subjective Ambulation: limited ambulation Voiding: patiño catheter in place Passing Gas:: No Diet Tolerance:: nausea/vomiting Lochia:: Small Patient feels very bloated and has not been able to pass gas. Denies any SOB or CP. Has not been nauseated since last night but has also not tried to eat anything since her prior emesis. Physical Exam Vital Signs (Past 24 Hours) Last Vital Signs Temp 37.3 C 08/08/18 03:40 Pulse 91 H 08/08/18 03:40 Resp 18 08/08/18 04:20 BP 109/75 08/08/18 03:40 Pulse Ox 96 08/08/18 04:20 Gen: NAD Resp: Nonlabored breathing, no distress, NCO2 in place. Abd: soft, distended. Fundus @ umb, incision with dressing removed is c/d/i with steristrips Ext: Neg Emerita's, improved bilateral edema in feet, now trace.
--- NOTE | 2018-08-08 07:37 | Anesthesiology Progress Note ---
Date of Service August 08, 2018 Anesthesia Post Procedure Vital Signs Vital Signs: Temp Pulse Pulse Resp BP BP Pulse Ox 08/08/18 04:20 18 96 08/08/18 03:40 37.3 C 91 H 18 109/75 97 08/08/18 02:30 18 98 08/08/18 01:30 18 98 08/08/18 00:35 36.8 C 72 20 112/73 100 08/08/18 00:30 20 100 08/07/18 23:30 20 96 08/07/18 22:20 18 96 08/07/18 19:55 37.1 C 74 18 150/82 H 94 08/07/18 18:05 18 94 08/07/18 17:15 20 90 08/07/18 16:30 20 92 08/07/18 15:30 20 91 08/07/18 14:30 20 92 08/07/18 13:30 36.5 C 66 18 120/75 94 08/07/18 12:40 37.7 C H 83 20 130/63 92 08/07/18 12:15 37.7 C H 18 08/07/18 12:01 79 86 L 08/07/18 11:56 79 88 L 08/07/18 11:51 83 89 L 08/07/18 11:50 79 18 86 L 08/07/18 11:46 79 90 08/07/18 11:41 91 H 89 L 08/07/18 11:39 90 157/82 H 08/07/18 11:36 90 90 08/07/18 11:33 91 H 89 L 08/07/18 11:31 88 90 08/07/18 11:28 82 141/71 H 08/07/18 11:26 93 H 90 08/07/18 11:23 38.7 C H 08/07/18 11:21 84 89 L 08/07/18 11:18 86 141/67 H 08/07/18 11:16 90 90 08/07/18 11:11 90 91 08/07/18 11:09 89 129/82 08/07/18 11:06 87 90 08/07/18 11:01 88 92 08/07/18 10:58 86 128/62 08/07/18 10:56 85 92 08/07/18 10:51 88 93 08/07/18 10:50 86 18 141/67 H 90 08/07/18 10:48 86 148/67 H 94 08/07/18 10:46 92 H 92 08/07/18 10:43 92 H 93 08/07/18 10:41 94 H 93 08/07/18 10:40 88 18 92 08/07/18 10:38 89 149/69 H 08/07/18 10:37 92 H 92 08/07/18 10:36 90 96 08/07/18 10:31 90 98 08/07/18 10:30 88 18 92 08/07/18 10:26 99 H 98 08/07/18 10:21 96 H 81 L 08/07/18 10:20 88 18 92 08/07/18 10:16 105 H 98 08/07/18 10:11 108 H 98 08/07/18 10:10 88 18 93 08/07/18 10:06 115 H 96 08/07/18 10:01 117 H 93 08/07/18 10:00 88 18 93 08/07/18 09:59 218 H 170/68 H 08/07/18 09:57 117 H 93 08/07/18 09:56 109 H 167/72 H 99 08/07/18 09:53 129 H 179/122 H 08/07/18 09:51 122 H 93 08/07/18 09:50 37 C 18 08/07/18 08:43 82 137/69 08/07/18 08:40 79 136/78 08/07/18 08:38 72 149/80 H 08/07/18 08:36 71 151/81 H 97 08/07/18 08:31 71 139/77 96 08/07/18 08:26 71 147/79 H 96 08/07/18 08:21 69 95 08/07/18 08:16 70 96 08/07/18 08:12 67 136/72 08/07/18 08:11 69 97 08/07/18 08:06 76 97 08/07/18 08:01 72 97 08/07/18 07:57 90 134/92 08/07/18 07:56 85 97 08/07/18 07:55 90 88 L 08/07/18 07:51 77 96 08/07/18 07:46 69 92 08/07/18 07:42 67 133/64 08/07/18 07:41 68 94 08/07/18 07:36 66 94 Pain Intensity Abdomen: Pain Intensity: 4 Notes Mental Status: alert / awake / arousable and participated in evaluation Nausea / Vomiting: adequately controlled Pain: adequately controlled Airway Patency, RR, SpO2: stable & adequate BP & HR: stable & adequate Hydration State: stable & adequate Anesthetic Complications: no major complications apparent and Pt Satisfied with anesthetic care Notes: The patient is doing well. She is resting comfortably in bed. She did require 4l nc oxygen overnight due to pulmonary edema secondary to significant third spacing from prolongued pitocin infusion and fluids preoperatively. She has autodiuresed very well and continues to improve from this standpoint. The patient's sensory and motor block have resolved. She denies any pain. I informed the patient and her of the signs and symptoms of epidural abscess/hematoma including but not limited to sudden loss of bowel or bladder continence, sudden numbness or weakness, severe back pain, abnormal discharge from the back or redness, and fever. I instructed the patient to come to the ED with any of these symptoms and to make the ED aware that they had a recent epidural. The patient understands and agrees.
[2018-08-08] MEDS ORDERED: KETOROLAC 30 MG/ML VIAL IV ONE (10:59)
[2018-08-08] MEDS: SIMETHICONE 80 MG CHEW PO SCH ×3 (16:10→20:35)
[2018-08-08] MEDS ORDERED: CALCIUM CARBONATE 500 MG CHEWABLE TAB PO PRN (17:13)
[2018-08-08] MEDS: IBUPROFEN 600 MG TAB PO PRN (17:35)
[2018-08-08] MEDS ORDERED: BISACODYL 5 MG TABEC PO SCH (20:00)
--- NOTE | 2018-08-08 20:42 | Communication Note ---
Date of Service: August 08, 2018 Patient still struggling with abdominal distention and pain. No nausea/emesis, but had large loose BM that she was unable to restrain today. Has been passing some gas but the amount is decreasing and her distention is increasing along with her discomfort. No SOB, CP. Taking only clear liquids since some crackers this AM. Patient reports rare but LOUD bursts of [id number] bowel/abdominal sounds that are audible from across the room, several times today. Using simethicone (due for dose now and about to receive) Gen: Mild distress, but has good color to skin and is smiling. Cor: RRR Lungs: CTAB Abd: Marked distention. Tympany. Absent bowel sounds x4 quadrants with stethoscope. Incision c/d/i. Ext: Trace pedal edema. Plan: Pulm edema resolved and UOP has been good. Fluid balance better. Now having significant ileus and with the large loose stool and occasional bursts of loud bowel sounds I would plan an abd x-ray to r/o obstruction. Will keep to clear liquid diet but encourage small frequent sips, hoping to avoid need for resumption of IV fluids if possible. Will add reglan to meds. Patient has been doing a good job of ambulating and will be encouraged to continue.
[2018-08-08] MEDS: DOCUSATE SODIUM 100 MG CAP PO SCH (21:08)
[2018-08-08] MEDS: METOCLOPRAMIDE HCL INJ 5 MG/ML 2 ML VIAL IV SCH (21:11)
--- NOTE | 2018-08-08 21:53 | XRay Report ---
ABDOMEN 2 VIEWS CLINICAL HISTORY: Generalized abdominal pain. Recent /delivery. FINDINGS: Supine and erect portable abdominal radiographs are obtained. No prior studies are availabl e for comparison at the time of dictation. Correlation is made with chest x-ray dated 08/07/2018. No ev idence of intraperitoneal free air is seen. There are distended and gas-filled loops of small bowel w hich measure up to 4.6 cm in diameter. A large density in the pelvis likely represents the post gravi d uterus. There are no abnormal abdominal calcifications. The bony structures appear intact. There ar e left basilar airspace opacities. IMPRESSION: 1. There are distended and gas-filled loops of small bowel. This likely represents ileus given the re ported history of recent delivery. Small bowel obstruction could appear similar and clinical correlat ion will be required. 2. A large density projecting over the pelvis likely represents the post gravid uterus. 3. There are left basilar airspace opacities. This appears improved from yesterday. Electronically signed by: Hung Ortiz M.D. 08/08/2018 9:52 PM
--- NOTE | 2018-08-09 00:37 | Communication Note ---
Date of Service: August 09, 2018 Patient had copious bilious emesis. RN notified me, and I recommend at this point placing an NG tube and restarting some crystalloid IV. Patient informed of recommendations and reasoning. Explained that we will watch I/O to avoid fluid overload (though pitocin risk factor now gone) and use lower than standard adult rate due to patient's petite size. She is aware typical progression would be to allow 24 hr gut rest, then clamp tube and trial PO fluid , then remove tube, which will likely require an extension of her hospital stay. She and are agreeable.
[2018-08-09] MEDS: LACTATED RINGER'S 1,000 ML IV SCH ×2 (01:30→20:59)
[2018-08-09] MEDS ORDERED: PROMETHAZINE HCL 12.5 MG in SODIUM CHLORIDE 0.9% 50 ML IV ONE (01:55)
[2018-08-09] MEDS: METOCLOPRAMIDE HCL INJ 5 MG/ML 2 ML VIAL IV SCH ×3 (02:52→15:27)
[2018-08-09 06:31] LABS: Hematocrit (blood only) 31.2 % (37-47); Hemoglobin 10.3 g/dL (12.0-16.0)
[2018-08-09 07:02] LABS: Albumin Level 1.8 gm/dl (3.4-5.0); BUN Creatinine Ratio 15.6 (10-20); Calcium 8.3 mg/dl (8.5-10.1); Creatinine Clr Calc Pharmacy 91.3 ml/min; Est GFR (Non-African American) 108.7; Potassium 3.8 mmol/L (3.5-5.1)
[2018-08-09 07:05] LABS: Albumin Globulin Ratio 0.5 (0.9-2); Bilirubin,Total 0.3 mg/dl (0.2-1); Globulin 3.9 gm/dl (2.5-4.0); Total Protein 5.7 gm/dl (6.4-8.2)
[2018-08-09] MEDS ORDERED: CHLORASEPTIC 1.4% SOLN 180 ML BTL MT PRN (07:45)
--- NOTE | 2018-08-09 08:13 | Obstetrical Progress Note ---
Date of Service <Danny Livingston DO - Last Filed: 08/09/18 08:13> August 09, 2018 Assessment & Plan <Danny Livingston DO - Last Filed: 08/09/18 08:13> (1) delivery delivered: 28 y/o, , @ 41.3 continue post- care monitor and control pain POD #2 (2) Ileus, postoperative: Abdomen 2views ordered stat this morning for continued nausea and vomiting with NG tube in place continue with NG tube Metoclopramid 10mg IV q6h scheduled surgery consulted for care and management (3) with 41 completed weeks gestation: planned induction of labor with after failure to progress Day #:: 2 Subjective <Danny Livingston DO - Last Filed: 08/09/18 08:13> Ambulation: ambulating normally Voiding: no voiding problems Diet Tolerance:: NPO Current Pain Level(1-10): 0 Filomena had bilious vomiting with nausea overnight that required NG tube placement. Patient notes NG tube did not provide relief. She was still having vomiting with NG tube, nursing staff reported normal functioning of NG tube in intermittent suction. She also has been having numerous episodes of loose stools that she notes probably approx 6 episodes. She denies fever, chills, chest pain, shortness of breath. Physical Exam <Danny Livingston DO - Last Filed: 08/09/18 08:13> Vital Signs (Past 24 Hours) Last Vital Signs Temp 37 C 08/08/18 23:20 Pulse 70 08/08/18 23:20 Resp 16 08/08/18 23:20 BP 142/89 H 08/08/18 23:20 Pulse Ox 92 08/08/18 23:20 Constitutional WD/WN, vitals as above Respiratory normal respiratory effort; no respiratory distress and does not use accessory muscles mild rales to left posterior base with patient lying in left lateral position, right lung base is clear to auscultation in left lateral position Cardiovascular Rate/Rhythm: regular rate and regular rhythm Heart Sounds: no murmur Gastrointestinal (Abdomen) Percussion/Palpation: abdomen nontender diminished bowel sounds, incision site is clean, dry, and intact without any signs of infection Skin no rashes, warm and dry Neurologic moves all extremities and awake Psychiatric Orientation: alert Eye Contact: good eye contact Results & Data <Danny Livingston DO - Last Filed: 08/09/18 08:13> Laboratory Results Laboratory Results - last 24 hr 08/09/18 08/09/18 06:13 06:13 Hgb 10.3 L Hct 31.2 L Sodium 143 Potassium 3.8 Chloride 112 H Carbon Dioxide 24 Anion Gap 7.0 BUN 12 Creatinine 0.74 Est Cr Clr Drug Dosing 91.3 Est GFR ( Amer) 126.0 Est GFR (Non-Af Amer) 108.7 BUN/Creatinine Ratio 15.6 Glucose 98 Calcium 8.3 L Total Bilirubin 0.3 AST 17 ALT 15 Alkaline Phosphatase 108 Total Protein 5.7 L Albumin 1.8 L Globulin 3.9 Albumin/Globulin Ratio 0.5 L Medications Administered Calcium Carbonate (Tums) 1,500 mg PO Q8 PRN PRN Reason: Indigestion Stop: 09/07/18 17:12 Last Admin: 08/08/18 17:35 Dose: 1,500 mg Docusate Sodium (Colace) 100 mg PO BID [facility] Stop: 09/06/18 20:59 Last Admin: 08/08/18 21:08 Dose: Not Given Admin: 08/07/18 21:50 Dose: 100 mg Lactated Ringer's (Lr) 1,000 mls @ 100 mls/hr IV .Q10H [facility] Stop: 09/06/18 09:44 Last Infusion: 08/09/18 02:25 Dose: 100 mls/hr Infusion: 08/09/18 02:09 Dose: 0 mls/hr Admin: 08/09/18 01:30 Dose: 100 mls/hr Ibuprofen (Motrin) 600 mg PO Q4H PRN PRN Reason: Pain Stop: 09/06/18 09:33 Last Admin: 08/08/18 17:35 Dose: 600 mg Metoclopramide HCl (Reglan) 10 mg IV Q6H [facility] Stop: 08/09/18 20:59 Last Admin: 08/09/18 02:52 Dose: 10 mg Admin: 08/08/18 21:11 Dose: 10 mg Simethicone (Mylicon) 80 mg PO QID [facility] Stop: 09/06/18 12:59 Last Admin: 08/08/18 20:35 Dose: 80 mg Admin: 08/08/18 16:52 Dose: 80 mg Admin: 08/08/18 16:10 Dose: Not Given Admin: 08/07/18 21:50 Dose: 80 mg Admin: 08/07/18 18:41 Dose: 80 mg Admin: 08/07/18 17:24 Dose: Not Given <April Ruiz MD - Last Filed: 08/09/18 08:24> Co-Signing Physician Notes Patient seen this morning and exam done, discussion held with patient and . NGT placed around 1am for ongoing distention, emesis and loose stools. With placement of tube to low intermittent wall suction there was retrieval of appropriate bilious material. However, patient remains nauseated and has had emesis despite tube. Further, she continues with loose frequent stools. There is no single point of pain or lump to suggest an incarcerted hernia. There is no fever, no rebound or guarding. Abdomen is somewhat less tense / softer than it was at 1am but remains very distended and tympanitic. Imaging ordered again this morning and I have reviewed images, and received report just now. There continue to be large dilated gas-filled bowel loops, possible colon gas, and with pt in decubitus, air-fluid levels seen. NG tube position appears to be in the stomach. Will request surgery team see this patient, consult placed this morning.
--- NOTE | 2018-08-09 08:16 | XRay Report ---
XR abdomen min 2V CLINICAL HISTORY: ileus, NG tube in currently COMPARISON STUDY: 08/08/2018 FINDINGS: A nasogastric tube is visualized within the stomach. There is persistent gaseous distention of small bowel loops. There is a possibility of left colonic gas. There is no gas present within the pelvis, and soft tissue prominence the pelvis may be secondary to a post gravid uterus. No free air is visualized on the decubitus view. There are multiple air-fluid levels. IMPRESSION: 1. Persistent nonspecific bowel gas pattern with mildly dilated small bowel loops and multiple air-fl uid levels. 2. Nasogastric tube within the stomach 3. Soft tissue prominence of the pelvis, likely secondary to a post gravid uterus. Electronically signed by: Mandeep Salomon M.D. 08/09/2018 8:14 AM
[2018-08-09 08:57] LABS: Phosphorus 3.5 mg/dl (2.5-4.9)
[2018-08-09] MEDS ORDERED: BISACODYL 10 MG SUPP PR PRN (09:34)
[2018-08-09] MEDS ORDERED: ONDANSETRON INJ 2 MG/ML 2 ML VIAL IV PRN (09:59)
--- NOTE | 2018-08-09 10:17 | Surgery Consultation ---
Date of Consultation August 09, 2018 Assessment & Plan (1) Ileus, postoperative: XR slightly improved this morning, NG in ok position at 55 cm consider clamping trial later this evening or in AM if output decreases added prn zofran will follow History of Present Illness Attending Physician: Isamar Estevez MD, FACOG History of Present Illness 28 y/o female had 2 days ago developed abdominal pain and distention yesterday and N/V overnight. NG tube was placed. She had multiple loose BMs overnight but now decreasing this morning. No other flatus. Nausea is improved, having some dry heaves from NG. Allergies Allergy/AdvReac Type Severity Reaction Status Date / Time amoxicillin Allergy Rash Verified 07/21/18 09:50 Penicillins Allergy Rash Verified 07/21/18 09:49 Home Medications Home Medications Medication Instructions Recorded Confirmed Type PNV cmb#95-ferrous fumarate-FA 1 tabs PO DAILY 08/05/18 08/06/18 History [] Patient History Medical History Anxiety and depression history of, no medications currently Surgical History [place] teeth extracted Family History Grandfather (Maternal) Lung cancer Father No problems noted. Mother No problems noted. Social History marital status: Current Living Situation: Spouse Other Information That Helps Us Care for You: No Feels Safe at Home: Yes Smoking Status: Never smoker Do You Dip or Chew Tobacco: No Hx Alcohol Use: No Hx Substance Use: No Beliefs That Will Affect Care: None Preferred Language: Swedish Communication Ability: Effective Manager Quality Compliance Required: No Review of Systems Gastrointestinal: + nausea, + vomiting and + diarrhea/loose stools Physical Exam 2 Vital Signs (Past 24 Hours): Last Vital Signs Temp 37 C 08/08/18 23:20 Pulse 70 08/08/18 23:20 Resp 16 08/08/18 23:20 BP 142/89 H 08/08/18 23:20 Pulse Ox 92 08/08/18 23:20 Constitutional: WD/WN, vitals as above no acute distress Gastrointestinal (Abdomen): Inspection/Auscultation: + abdomen distended ( slightly) Percussion/Palpation: abdomen soft NG 475 last night, 150 past 4 hours
--- NOTE | 2018-08-09 12:25 | Progress Note ---
Date of Service August 09, 2018 Assessment & Plan (1) Ileus, postoperative: suspect ileus- cont NG- try clamping schedule- on Reglan may have been element of gastric distention. check Mg, Phos Will follow- Subjective pt with N/V, abd distention post C- section NG in place feeling better- small bm and positive flatus suspected ileus Physical Exam 2 Vital Signs (Past 24 Hours): Last Vital Signs Temp 36.8 C 08/09/18 07:30 Pulse 71 08/09/18 07:30 Resp 16 08/09/18 07:30 BP 115/71 08/09/18 07:30 Pulse Ox 95 08/09/18 07:30 awake, alert, no distress- affect good abd- mild-mod distention- not firm, no tenderness decreased bs
[2018-08-09] MEDS: SIMETHICONE 80 MG CHEW PO SCH ×2 (19:51→21:01)
[2018-08-09] MEDS: DOCUSATE SODIUM 100 MG CAP PO SCH (21:01)
--- NOTE | 2018-08-10 06:14 | Progress Note ---
Date of Service August 10, 2018 Assessment & Plan (1) Ileus, postoperative: discussed possible removal of NG and trial of liquids- she doesn't want to have NG replaced- so will clamp and try some liquids possible NG removal later today- encouraged ambulation check labs (C Diff was negative ) Subjective feels better- loose bms but less- C diff neg less output from NG had some ice Physical Exam 2 Vital Signs (Past 24 Hours): Last Vital Signs Temp 36.6 C 08/10/18 04:10 Pulse 62 08/10/18 04:10 Resp 18 08/10/18 04:10 BP 126/74 08/10/18 04:10 Pulse Ox 97 08/10/18 04:10 less distended, decreased bowel sounds min tenderness
[2018-08-10] MEDS: LACTATED RINGER'S 1,000 ML IV SCH ×2 (07:18→21:37)
--- NOTE | 2018-08-10 07:41 | Obstetrical Progress Note ---
Date of Service <Danny DO Miki - Last Filed: 08/10/18 07:41> August 10, 2018 Assessment & Plan <Danny DO Miki - Last Filed: 08/10/18 07:41> (1) delivery delivered: 28 y/o, , @ 41.3 continue post- care monitor and control pain POD #3 (2) Ileus, postoperative: resolving Her NG tube is clamped and she is tolerating that well. Plan is to trial clear liquids today and if tolerates well to remove NG tube. Ta for nausea appreciate surgery recs (3) with 41 completed weeks gestation: planned induction of labor with after failure to progress Subjective <Danny Livingston DO - Last Filed: 08/10/18 07:41> Ambulation: ambulating normally Voiding: no voiding problems Passing Gas:: Yes Diet Tolerance:: NPO Feeding Type:: breast feeding Current Pain Level(1-10): 0 Filomena states she feels improved today. Her diarrhea is resolving with scant amount. She had no vomiting episodes overnight. Her nausea is controlled with anti-emetics. Her NG tube is clamped and she is tolerating that well. Plan is to trial clear liquids today and if tolerates well to remove NG tube. Physical Exam <Danny Livingston DO - Last Filed: 08/10/18 07:41> Vital Signs (Past 24 Hours) Last Vital Signs Temp 36.6 C 08/10/18 04:10 Pulse 62 08/10/18 04:10 Resp 18 08/10/18 04:10 BP 126/74 08/10/18 04:10 Pulse Ox 97 08/10/18 04:10 Constitutional WD/WN, vitals as above Respiratory normal respiratory effort; no respiratory distress and does not use accessory muscles Cardiovascular Rate/Rhythm: regular rate and regular rhythm Heart Sounds: no murmur Gastrointestinal (Abdomen) Percussion/Palpation: abdomen nontender diminished bowel sounds, surgical incision site is clean, dry, intact without signs of infection. Skin no rashes, warm and dry Neurologic moves all extremities and awake Psychiatric Orientation: alert Eye Contact: good eye contact Results & Data <Danny Livingston DO - Last Filed: 08/10/18 07:41> Laboratory Results Laboratory Results - last 24 hr 01/07/19 01/07/19 06:13 14:20 Phosphorus 3.5 Magnesium 2.0 Stl C. diff Tox B Gene Neg C.diff Toxin B Medications Administered Calcium Carbonate (Tums) 1,500 mg PO Q8 PRN PRN Reason: Indigestion Stop: 09/07/18 17:12 Last Admin: 08/08/18 17:35 Dose: 1,500 mg Docusate Sodium (Colace) 100 mg PO BID [facility] Stop: 09/06/18 20:59 Last Admin: 08/09/18 21:01 Dose: Not Given Admin: 08/08/18 21:08 Dose: Not Given Admin: 08/07/18 21:50 Dose: 100 mg Lactated Ringer's (Lr) 1,000 mls @ 100 mls/hr IV .Q10H [facility] Stop: 09/06/18 09:44 Last Admin: 08/10/18 07:18 Dose: 100 mls/hr Infusion: 08/10/18 06:59 Dose: 100 mls/hr Infusion: 08/10/18 06:14 Dose: 100 mls/hr Infusion: 08/09/18 21:53 Dose: 100 mls/hr Admin: 08/09/18 20:59 Dose: 100 mls/hr Infusion: 08/09/18 14:38 Dose: 100 mls/hr Infusion: 08/09/18 10:50 Dose: 100 mls/hr Infusion: 08/09/18 02:25 Dose: 100 mls/hr Infusion: 08/09/18 02:09 Dose: 0 mls/hr Admin: 08/09/18 01:30 Dose: 100 mls/hr Ibuprofen (Motrin) 600 mg PO Q4H PRN PRN Reason: Pain Stop: 09/06/18 09:33 Last Admin: 08/08/18 17:35 Dose: 600 mg Simethicone (Mylicon) 80 mg PO QID [facility] Stop: 09/06/18 12:59 Last Admin: 08/09/18 21:01 Dose: Not Given Admin: 08/09/18 19:51 Dose: Not Given Admin: 08/08/18 20:35 Dose: 80 mg Admin: 08/08/18 16:52 Dose: 80 mg Admin: 08/08/18 16:10 Dose: Not Given Admin: 08/07/18 21:50 Dose: 80 mg Admin: 08/07/18 18:41 Dose: 80 mg Admin: 08/07/18 17:24 Dose: Not Given <Valentin Reeves MD, FACOG - Last Filed: 08/10/18 07:50> Co-Signing Physician Notes Resident Physician Supervision Note: I interviewed and examined the patient. Discussed with Dr. Livingston and agree with findings and plan as documented in the note. Any exceptions or clarifications are listed here: [None] Documented By: Valentin Reeves MD, FACOG
[2018-08-10 08:32] LABS: Albumin Globulin Ratio 0.5 (0.9-2); Albumin Level 1.9 gm/dl (3.4-5.0); BUN Creatinine Ratio 17.3 (10-20); Bilirubin,Total 0.3 mg/dl (0.2-1); Creatinine Clr Calc Pharmacy 125.1 ml/min; Est GFR (African American) 146.8; Est GFR (Non-African American) 126.6; Magnesium 1.6 mg/dl (1.8-2.4); Phosphorus 3.2 mg/dl (2.5-4.9); Potassium 3.2 mmol/L (3.5-5.1); Total Protein 5.9 gm/dl (6.4-8.2)
[2018-08-10] MEDS: SIMETHICONE 80 MG CHEW PO SCH ×6 (09:43→21:21)
[2018-08-10] MEDS: FERROUS SULFATE 325 MG TAB PO SCH (09:50)
[2018-08-10] MEDS: DOCUSATE SODIUM 100 MG CAP PO SCH ×2 (09:50→21:21)
[2018-08-10] MEDS: PRENATAL VITAMIN 1 TAB PO SCH (09:51)
[2018-08-10] MEDS: MAGNESIUM OXIDE 400 MG TAB PO SCH ×2 (12:07→21:34)
[2018-08-10] MEDS: POTASSIUM CHLORIDE / WTR 10 MEQ/100 ML PLCT IV SCH ×2 (12:11→15:31)
--- NOTE | 2018-08-11 07:17 | Progress Note ---
Date of Service August 11, 2018 Assessment & Plan (1) Ileus, postoperative: will adv to low fiber diet, add senna syrup encourage activity d/c when diet tolerated Subjective some loose bm and flatus no N/V over 24 hrs shaw clearliquids with good ur output Physical Exam 2 Vital Signs (Past 24 Hours): Last Vital Signs Temp 36.8 C 08/11/18 04:05 Pulse 72 08/11/18 04:05 Resp 18 08/11/18 04:05 BP 137/91 08/11/18 04:05 Pulse Ox 97 08/11/18 04:05 awake, alert abd- soft, min distention, some bowel sounds
[2018-08-11] MEDS ORDERED: SENNA 8.6 MG TAB PO PRN (07:30)
--- NOTE | 2018-08-11 08:55 | Obstetrical Progress Note ---
Date of Service <Danny Livingston DO - Last Filed: 08/11/18 08:55> August 11, 2018 Assessment & Plan <Danny Livingston DO - Last Filed: 08/11/18 08:55> (1) delivery delivered: 28 y/o, , @ 41.3 continue post- care monitor and control pain POD #4 blood pressure elevated this morning 163/86, asymptomatic. Patient states elevations could be secondary to her anxiety. (2) Ileus, postoperative: resolving Her NG tube was removed, and she is tolerating that well. She is tolerating clear fluids. Advance diet as tolerated. Surgery recs low fiber diet. Zofran for nausea IV fluids discontinued as she is tolerting PO fluids. (3) with 41 completed weeks gestation: planned induction of labor with after failure to progress Subjective <Danny Livingston, DO - Last Filed: 08/11/18 08:55> Ambulation: ambulating normally Voiding: no voiding problems Passing Gas:: Yes Feeding Type:: bottle feeding Filomena states she is feeling improved today. She states diarrhea is resolving with intermittent loose stools; she notes that she has nervous BMs which could be the cause. Her nausea is resolving, and she has not had any vomiting since removing of NG tube overnight. Tolerating secretions and clear fluids without difficulty. Plan is for low fiber diet. She denies headache, RUQ pain, visual changes. Patient states elevations of BP could be secondary to her anxiety. Physical Exam <Danny Livingston DO - Last Filed: 08/11/18 08:55> Vital Signs (Past 24 Hours) Last Vital Signs Temp 36.9 C 08/11/18 07:45 Pulse 69 08/11/18 07:45 Resp 20 08/11/18 07:45 BP 163/86 H 08/11/18 07:45 Pulse Ox 97 08/11/18 04:05 Constitutional WD/WN, vitals as above Respiratory normal respiratory effort; no respiratory distress and does not use accessory muscles Cardiovascular Rate/Rhythm: regular rate and regular rhythm Heart Sounds: no murmur Gastrointestinal (Abdomen) Inspection/Auscultation: + abdomen distended (mild) and normal bowel sounds Percussion/Palpation: abdomen nontender fundus is firm, non-tender, 4cm below umbilicus. Surgical incision site is clean, dry, intact without signs of infection Skin no rashes, warm and dry Neurologic moves all extremities and awake Psychiatric Orientation: alert Eye Contact: good eye contact <Isamar Estevez MD, FACOG - Last Filed: 08/11/18 09:01> Co-Signing Physician Notes Resident Physician Supervision Note: I interviewed and examined the patient. Discussed with Dr. Livingston and agree with findings and plan as documented in the note. Any exceptions or clarifications are listed here: Patient doing much better. NGT out. Minimal nausea. Has tolerated some clears. OK to advance diet per surgery and d/c fluids. Note made of elevated pressures. Patient has no s/s of preeclampsia. Patient suspects that it is partially secondary to anxiety. I agree. Will continue to monitor closely today as she advances to a regular diet. She continues to have loose stools, but not as explosive and C. diff is negative. Patient is anxious to get home. Documented By: Isamar Estevez MD, FACOG
[2018-08-11] MEDS: SIMETHICONE 80 MG CHEW PO SCH ×3 (09:10→16:43)
[2018-08-11] MEDS: FERROUS SULFATE 325 MG TAB PO SCH (09:10)
[2018-08-11] MEDS: DOCUSATE SODIUM 100 MG CAP PO SCH (09:10)
[2018-08-11] MEDS: PRENATAL VITAMIN 1 TAB PO SCH (09:10)
[2018-08-11] MEDS: SENNA 8.6 MG TAB PO SCH ×2 (09:11→09:51)
[2018-08-11] MEDS: IBUPROFEN 600 MG TAB PO PRN (16:42)
--- NOTE | 2018-08-12 12:37 | Coding Query ---
CODING QUERY To promote full compliance with coding requirements relating to patient care, provider participation is requested in all cases of social services analyst uncertainty. Please assist us with the question(s) below: Coding Question(s): Patient with failed medical induction, status post section. Prolonged inpatient stay for postoperative ileus. Patient followed by Surgery. Please check below the phrase that describes the postopertive ileus. Thanks for your help! JEFFRY Garcia [facility] Physician's Response(s): ____x___ Postoperative Ileus is an expected complication Postoperative Ileus is a postoperative complication Cannot determine if the Postoperative Ileus is a postop complication Other/ Please document: Principal Diagnosis: "�that condition established after study, to be chiefly responsible for occasioning the admission of the patient to the hospital for care." Co-Existing Principal Diagnosis: "�when two or more diagnoses equally meet the criteria for principal diagnosis as determined by the circumstances of admission , diagnostic work up, and/or therapy provided, and the Alphabetic Index, Tabular List, or another coding guideline does not provide sequencing direction , any one of the diagnoses may be sequenced first." "When the physician has documented what appears to be a current diagnosis in the body of the record, but has not included the diagnosis in the final diagnostic statement, the physician should be asked whether the diagnosis should be added." (Source [facility]oding [facility] 2 QTR90. p3-4) LD
--- NOTE | 2018-08-12 14:40 | Discharge Summary ---
ADMISSION DIAGNOSIS: Intrauterine at 41-2/7 weeks for induction of labor. DISCHARGE DIAGNOSES: 1. Intrauterine at 41-2/7 weeks for induction of labor. 2. Failure to induce/progress. 3. Pulmonary edema, resolved. 4. Ileus, resolved. PROCEDURES: 1. May bulb for cervical ripening. 2. Pitocin augmentation. 3. Epidural anesthesia. 4. Amniotomy. 5. Primary section. 6. Nasogastric tube placement. 7. Surgery consult. HISTORY OF PRESENT ILLNESS: Patient is a 28-year-old 1, para 0 with an intrauterine at 41-2/7 weeks, who presented to labor and delivery for induction of labor for prolonged . She had a May balloon placed the night before admission that fell out upon arriving in labor and delivery. She reported some vaginal spotting overnight, feeling good movement and no significant contractions. The has been pretty much uncomplicated. She is GBS negative. For the rest of patient's detailed history and physical, please see her history and physical. ASSESSMENT: This is a 41-1/7 weeks patient who presents for induction of labor. HOSPITAL COURSE: Patient was admitted. On exam, she was 4, 60, and -2, so Pitocin augmentation was initiated. She eventually got into a good labor pattern, underwent an epidural for pain management, and then an amniotomy for clear fluid. The patient unfortunately did not progress past 4 cm and about 80% effaced. She had Pitocin to a max of 30 x2 with after the first time halving and going up again. She had an intrauterine pressure catheter, and we could never get adequate contractions. There was a concern that this baby was going to be rather large, and so after 24 hours, with 16 hours of those being ruptured, she underwent a primary low transverse section for delivery of a 9 pound 3 ounce baby. Normal uterus, tubes, and ovaries were noted bilaterally. There was a right paratubal cyst. This was on the morning of hospital day 1. Later in the evening, she was evaluated. She needed persistent oxygen to keep her saturations above 95%. She had a chest x-ray, which showed mild pulmonary edema, likely to third spacing after prolonged high dose Pitocin and significant fluids. IV fluids were discontinued and stopped. As her bleeding was good, she continued to step on oral fluids and had antiemetics as needed. Urine output, which was borderline around the time of delivery, had increased, and we were going to give her some time to diurese. The patient then began developing signs and symptoms of an ileus. Her diet was moved back. She continued to have nausea, vomiting, and explosive diarrhea as well as abdominal distention and pain. Her pulmonary edema had resolved, and her urine output had been good. An abdominal x-ray was consistent with ileus. When she started to have copious bilious emesis, an NG tube was placed, and crystalloid was restarted. She underwent a surgical consultation, and they agreed with the diagnosis of postoperative ileus. She had NG tube drainage for 24 hours. She was started on Reglan. Electrolytes were checked. Magnesium, phosphorus, and potassium were replaced. On 08/10/2018, her NG tube was clamped, and she did well with some trials of liquids, and so later in that day, the NG tube was removed. On the morning of postoperative day #4, her ileus was resolving. Her NG tube had been removed. She was doing well with clear liquids. She was advanced to a low fiber diet and did well with it. Throughout the days when her course developed postoperative ileus, her blood pressures increased to 150s to 160s over 80s to 90s. The patient had no signs or symptoms of preeclampsia, and it was suspected that the borderline elevated blood pressures were due with anxiety related to her unexpected hospital course. The patient was discharged late in the day on postoperative day 4 after she had tolerated her diet, had remained afebrile, had voided after the removal of her May catheter. Her discharge H and H were 10.3 and 31.2. Her ileus had resolved. Her bowel movements, although she continued to have loose stools, they were more controlled and not as explosive. She did have a C. difficile checked, which was negative. Patient will return in a few days for a blood pressure check given her elevated blood pressures in the recovery time and additionally for a check for depression as we feel that she is at a significantly increased risk given her course. She was given a postoperative script for Percocet for pain. LD
== END 2018-08-11 20:05 | disposition home or self-care (01) | DRG 787 ==
LOC: 4S1 07:24 → 4S2 08-07 12:32

== ENCOUNTER 2021-09-25 05:24 | Inpatient (IN) ==
--- NOTE | 2021-09-19 13:06 | Anesthesiology Consultation ---
Date of Service September 19, 2021 Assessment & Plan (1) Encounter for pre-operative examination: Chart Review Chart Review: manager entry initiated Per nursing assessment 09/19/21, patient denies any recent travel. Patient is not vaccinated for Covid. No known Covid positive exposures or Covid related symptoms. Pt did test Covid positive 08/19/21 (had congestion and slight cough- symptoms have since resolved- copy of PCR test scanned into chart). Preop Covid testing scheduled 09/23/21= will await results History Surgery Operation Date: 09/25/21 07:30 Proposed Procedures p Section in LD - Salima Yusuf MD Height/Weight Height: 4 ft 10 in Weight: 71.214 kg Allergies Allergy/AdvReac Type Severity Reaction Status Date / Time amoxicillin Allergy Mild Rash Verified 09/19/21 12:19 Penicillins Allergy Mild Rash Verified 09/19/21 12:19 Medications Home Medications Medication Instructions Recorded Confirmed Last Taken docosahexaenoic acid 200 mg 200 mg PO QDL 08/27/20 09/19/21 Unknown capsule ( DHA) iron,carbonyl 65 mg-vitamin C 125 1 tab PO BID 09/19/21 09/19/21 Unknown mg tablet,delayed release (Vitron-C) Past Medical History Medical History (Updated 09/19/21 @ 16:14 by Aide Ware PA-C) Anemia Anxiety and depression History of, no medications currently History of COVID-19 08/19/[address] Yosef Guerrier office (PCR test)--congestion, slight cough--no issues now Past Family History Family History Grandfather (Maternal) Lung cancer Hypertension Father No problems noted. Mother No problems noted. Grandfather (Paternal) Diabetes Grandmother (Maternal) Breast cancer maternal great grandmother Other No family history of adverse response to anesthesia Past Surgical History Surgical History History of delivery [place] teeth extracted Social History Smoking Status: Never smoker Do You Dip or Chew Tobacco: No Hx Alcohol Use: No (none during --prior only holidays) Hx Substance Use: No substance use type: does not use Testing Laboratory Results 08/26/21= WBC: 11.09 H/H: 12.6/39.1 PLATELETS: 235
[2021-09-25] MEDS ORDERED: LACTATED RINGER'S 1,000 ML IV SCH ×3 (05:30→11:00)
[2021-09-25 05:51] LABS: Basophils # (auto) 0.01 K/uL (0-0.2); Basophils % (auto) 0.1 %; Eosinophils # (auto) 0.04 K/uL (0-0.5); Eosinophils % (auto) 0.4 %; Hemoglobin 12.5 g/dL (12.0-16.0); Immature Granulocytes # (auto) 0.02 K/uL (0.00-0.02); Immature Granulocytes % (auto) 0.2 %; Lymphocytes # (auto) 2.87 K/uL (1.2-3.4); Lymphocytes % (auto) 29.6 %; Mean Corpuscular Hemoglobin 28.8 pg (25-34); Mean Corpuscular Hgb Conc 33.8 g/dL (32-36); Mean Corpuscular Volume 85.3 fL (80-100); Mean Platelet Volume 12.3 fL (7.4-10.4); Monocytes % (auto) 8.3 %; Neutrophils # (auto) 5.94 K/uL (1.4-6.5); Neutrophils % (auto) 61.4 %; Platelet Count 193 K/uL (130-400); RDW Coefficient of Variation 15.2 % (11.5-14.5); RDW Standard Deviation 48.1 fL (36.4-46.3); Red Blood Count 4.34 M/uL (4.2-5.4); White Blood Count 9.68 K/uL (4.8-10.8)
[2021-09-25] MEDS ORDERED: ceFAZolin 2000MG 2,000 MG/15 ML SYR IV SCH (06:00)
[2021-09-25] MEDS ORDERED: CITRIC ACID/SODIUM CITRATE 15 ML UDC PO SCH (06:00)
[2021-09-25] MEDS ORDERED: ONDANSETRON INJ 2 MG/ML 2 ML VIAL ONE (06:55)
[2021-09-25] MEDS ORDERED: MoRPHine SULFATE PF 1 MG/ML 10 ML AMP/VIAL ONE (06:55)
[2021-09-25] MEDS ORDERED: fentaNYL citrate 100 MCG/2 ML VIAL ONE (06:55)
--- NOTE | 2021-09-25 07:20 | History & Physical Bridge Note ---
Date of Service September 25, 2021 History & Physical Bridge Note I have examined the patient, reviewed the History & Physical and in the interval since the performance of the History & Physical I have noted the following changes of clinical significance: no changes noted
[2021-09-25] MEDS ORDERED: NALOXONE HCL 1 MG in SODIUM CHLORIDE 0.9% 1000ML 1,000 ML IV PRN (09:44)
[2021-09-25] MEDS ORDERED: MoRPHine SULFATE PF 1 MG/ML 10 ML AMP/VIAL INT SPINAL ONE (09:44)
[2021-09-25] MEDS ORDERED: PROMETHAZINE HCL 25 MG in SODIUM CHLORIDE 0.9% 50 ML IV PRN (09:44)
[2021-09-25] MEDS ORDERED: ONDANSETRON INJ 2 MG/ML 2 ML VIAL IV PRN (09:44)
[2021-09-25] MEDS ORDERED: KETOROLAC 30 MG/ML VIAL IV PRN (09:44)
[2021-09-25] MEDS ORDERED: ePHEDrine sulfate 50 MG/ML AMP IV PRN (09:44)
[2021-09-25] MEDS ORDERED: NALOXONE HCL 0.08 MG in SYRINGE 1.8 ML IV PRN (09:44)
[2021-09-25] MEDS ORDERED: HYDROmorphone INJ 0.5 MG/0.5 ML SYR IV PRN (09:44)
[2021-09-25] MEDS ORDERED: LACTATED RINGER'S 500 ML IV PRN (09:44)
[2021-09-25] MEDS ORDERED: ACETAMINOPHEN 325 MG TAB PO PRN (09:44)
[2021-09-25] MEDS ORDERED: NALBUPHINE HCL INJ 10 MG/ML AMP IV PRN (09:44)
[2021-09-25] MEDS ORDERED: NALOXONE HCL 0.4 MG/1 ML VIAL/CARP IV PRN (09:44)
[2021-09-25] MEDS ORDERED: diphenhydrAMINE 50 MG/ML VIAL IV PRN (09:44)
[2021-09-25] MEDS ORDERED: SODIUM CHLORIDE 0.9% 1000ML 1,000 ML IV SCH (09:45)
[2021-09-25] MEDS ORDERED: DC INTRASPINAL MORPHINE SCH (09:45)
[2021-09-25] MEDS ORDERED: NO NARCOTICS OR SEDATIVES SCH (09:45)
[2021-09-25] MEDS ORDERED: ARISTA ABSORBABLE HEMOSTAT 3GM TOP ONE (10:14)
[2021-09-25] MEDS ORDERED: GELATIN SPONGE 12-7MM EXT ONE ×3 (10:16→10:29)
[2021-09-25] MEDS ORDERED: MEASLES, MUMPS & RUBELLA VIRUS VIAL SQ ONE (10:49)
[2021-09-25] MEDS ORDERED: BENZOCAINE 20% AER SPR 82.5 GM CAN EXT PRN (10:49)
[2021-09-25] MEDS ORDERED: SENNA 8.6 MG TAB PO PRN (10:49)
[2021-09-25] MEDS ORDERED: DIPHTHERIA/TETANUS/PERTUSSIS 0.5 ML SYR/VIAL IM ONE (10:49)
[2021-09-25] MEDS ORDERED: HYDROCORTISONE ACETATE 25 MG SUPP PR PRN (10:49)
[2021-09-25] MEDS ORDERED: MAGNESIUM HYDROXIDE SUSP 30 ML UDC PO PRN (10:49)
--- NOTE | 2021-09-25 10:49 | Post Operative Brief Note ---
Immediate Post Op Note v1 Date of Surgery September 25, 2021 Pre & Post Diagnosis Operation Date: 09/25/21 07:30 Pre-Op Diagnosis: History of Post-Op Diagnosis: History of repeat I identified the patient and participated in the time-out.: Yes Procedure Operation Date: 09/25/21 07:30 Actual Procedures p Repeat Section in LD Delivery of live female child at 0953 in OR #3(Bilateral) - Salima Yusuf MD Surgeon Salima Yusuf MD Reports Analysis Manager Dr Lenz Estimated Blood Loss 600 Findings Consistent with Post-Op Diagnosis Drains May Catheter (placed after spinal, draining clear yellow urine.) Anesthesia Type Spinal Complications none Disposition Accompanied Patient To Recovery: Yes
--- NOTE | 2021-09-25 12:01 | Anesthesiology Progress Note ---
Date of Service September 25, 2021 Anesthesia Post Procedure Vital Signs Vital Signs: Temp Pulse Resp BP Pulse Ox 09/25/21 11:58 61 158/73 H 96 09/25/21 11:53 64 97 09/25/21 11:48 62 118/59 L 96 09/25/21 11:37 63 20 120/75 09/25/21 11:27 62 16 110/73 09/25/21 11:17 64 16 111/65 09/25/21 11:13 66 98 09/25/21 11:11 60 18 131/77 09/25/21 11:08 78 96 09/25/21 11:03 71 98 09/25/21 10:58 65 96 09/25/21 10:57 97.9 F 64 20 126/71 09/25/21 07:00 75 118/74 09/25/21 06:06 98.1 F 18 09/25/21 05:47 98.1 F 18 09/25/21 05:37 92 H 117/75 Transfer of Care Handoff Completed per policy Notes Mental Status: alert / awake / arousable and participated in evaluation Patient Amnestic to Procedure: Yes Nausea / Vomiting: adequately controlled Pain: adequately controlled Airway Patency, RR, SpO2: stable & adequate BP & HR: stable & adequate Hydration State: stable & adequate Neuraxial Anesthesia: was administered and sensory block is resolving Anesthetic Complications: no major complications apparent and Pt Satisfied with anesthetic care
--- NOTE | 2021-09-25 12:35 | Operative Report (OR) ---
DATE OF SURGERY: 09/25/2021. PREOPERATIVE DIAGNOSES: The patient is a 31-year-old G2, P1-0-0-1 at 39 weeks of gestation with prior history of , declines TOLAC/. POSTOPERATIVE DIAGNOSES: The patient is a 31-year-old G2, P1-0-0-1 at 39 weeks of gestation with prior history of , declines TOLAC/. PROCEDURE: Repeat low transverse with Pfannenstiel skin incision. SURGEON: Salima Yusuf MD ANALYST COMPETITIVE INTELLIGENCE: Elvin Lenz MD ESTIMATED BLOOD LOSS: 600 mL. DRAINS: May catheter drained 100 mL of clear urine. ANESTHESIA: Spinal. COMPLICATIONS: None. FINDINGS: Baby was a viable female infant delivered in cephalic presentation at 9:53 a.m. Apgars were 9/9 and weight was 3252 grams. Maternal findings, normal uterus, fallopian tubes, and ovaries. There were scarring adhesions in the fascia and rectus muscles. DESCRIPTION OF PROCEDURE: The patient was taken to the operating room where spinal anesthesia was given without difficulty. She was placed in dorsal supine position with a leftward tilt. She was prepared and draped in the usual sterile fashion. A Pfannenstiel skin incision was made from the old scar, carried through to the underlying layer of fascia with the Bovie. Fascia was incised in the midline and incision was extended laterally with the help of Yoo scissors. There was a lot of scarring on the fascia, which was thickened. Those were reduced gently with the tip of Yoo scissors and opened. The upper aspect of the fascial incision was grasped with 2 Aldo clamps, elevated, and underlying rectus muscles were dissected off sharply with Yoo scissors and tip of Bovie and bluntly with fingers, reduced those scarred and thickened tissue and hemostasis was achieved with the tip of Bovie. The lower aspect of the fascial incision was grasped with 2 Aldo clamps, elevated, and underlying rectus muscles were dissected off sharply with Yoo scissors and bluntly with fingers. The rectus muscles were attached in the midline with the scar. It was held with Allis clamps x2 and then the middle of the rectus muscle with the scar was incised gently with a scalpel and then the peritoneum was entered, the fingers were entered from the hole and made sure that there was no bladder or bowel. Then the rest of the rectus muscle and the thickened scar tissue were reduced with the tip of Yoo and Metzenbaum scissors and the abdominal wall was stretched gently with hands and then the bladder blade was inserted. Vesicouterine peritoneum was very thin and already open. Bladder was retracted with sponges and bladder blade was reinserted. Lower uterine segment was thin, but intact. It was incised in transverse fashion. Incision was extended laterally with the help of fingers. Membranes were ruptured. Clear fluid was obtained. Baby's head was delivered without difficulty. Shoulders were delivered with minimal traction. Mouth and nose were suctioned. Baby was vigorously moving and crying at that point and the cord was clamped x2 and cut at 1-minute delay and baby was handed off to the waiting pediatric team with Dr. Hood and placenta was delivered manually as intact and complete. Uterus was exteriorized and cleared of all clots and debris. Uterine incision was repaired with 0 Vicryl in a running locked fashion and a second imbricating layer was placed with another 0 Vicryl in a running locked fashion and there was oozing on the left corner. It was controlled with [id number] stitches x4 and some of the oozing on the middle of the incision was also controlled with [id number] stitches with 0 Vicryl. Cul-de-sac was irrigated with warm normal saline and suctioned. It was checked to be normal cul-de-sac, normal posterior serosa and uterus. Normal fallopian tubes and ovaries. Uterus was returned to the abdomen. Pelvis was irrigated with warm normal saline and suctioned. Some oozing points were controlled with the tip of Bovie and then the rest were placed with Mary Kay powder and then Surgifoam to prevent further oozing. Bladder flap was repaired with 3-0 Vicryl in a running fashion. Excellent hemostasis was achieved. Then we spent plenty of time observing to make sure there was no bleeding. There was no more bleeding from the incision or from the bladder flap. Then peritoneum was reapproximated with 3-0 Vicryl in a running fashion. The rectus muscles were reapproximated with 2-0 Vicryl in a running fashion and excellent hemostasis was achieved. Rectus fascia was reapproximated with 0 Vicryl in a running fashion and the subcuticular fat tissue was brought together with 3-0 Vicryl in a running fashion and the skin was closed with 4-0 Monocryl in a subcuticular fashion. The patient tolerated the procedure well. Sponge, lap, needle count was correct x3. No complications happened I was and Dr. Lenz was present during whole procedure. The patient was taken to the recovery room in stable condition. My payroll human resources assistant was needed for visualization, retraction, aid of delivery of and hemostasis during surgery Job ID: [id number] [facility]
[2021-09-25] MEDS ORDERED: LACTATED RINGER'S 500 ML IV ONE ×2 (13:49→16:15)
[2021-09-25] MEDS: OXYTOCIN 20 UNITS in LACTATED RINGER'S 1,000 ML IV SCH ×2 (13:52→21:48)
[2021-09-25] MEDS: SIMETHICONE 80 MG CHEW PO SCH ×3 (14:41→20:18)
[2021-09-25] MEDS: ACETAMINOPHEN 1,000 MG/100 ML VIAL IV PRN ×2 (16:00→23:38)
[2021-09-25 16:39] LABS: Basophils # (auto) 0.01 K/uL (0-0.2); Basophils % (auto) 0.1 %; Eosinophils # (auto) 0.02 K/uL (0-0.5); Eosinophils % (auto) 0.2 %; Hematocrit (blood only) 33.3 % (37-47); Hemoglobin 11.2 g/dL (12.0-16.0); Immature Granulocytes # (auto) 0.03 K/uL (0.00-0.02); Immature Granulocytes % (auto) 0.2 %; Lymphocytes # (auto) 2.92 K/uL (1.2-3.4); Lymphocytes % (auto) 22.8 %; Mean Corpuscular Hemoglobin 29.2 pg (25-34); Mean Corpuscular Volume 86.7 fL (80-100); Mean Platelet Volume 12.3 fL (7.4-10.4); Monocytes # (auto) 0.94 K/uL (0.11-0.59); Monocytes % (auto) 7.4 %; Neutrophils # (auto) 8.86 K/uL (1.4-6.5); Neutrophils % (auto) 69.3 %; Platelet Count 170 K/uL (130-400); RDW Coefficient of Variation 15.2 % (11.5-14.5); RDW Standard Deviation 48.6 fL (36.4-46.3); Red Blood Count 3.84 M/uL (4.2-5.4); White Blood Count 12.78 K/uL (4.8-10.8)
[2021-09-25 16:40] LABS: Mean Corpuscular Hgb Conc 33.6 g/dL (32-36)
--- NOTE | 2021-09-25 17:36 | Obstetrical Progress Note ---
Date of Service September 25, 2021 Assessment & Plan Admission and Anticipated Discharge Date Admission Date: September 25, 2021 Subjective Postop check Patient is seen and examined Feels well, no complaints Pain is under control with meds No CP/ SOB/ Dizziness/ N&V/ VB/ Leg pain Not OOB yet Tolerating clears Low UOP since surgery 20-30 ml/ hour Vital Signs Temp Pulse Pulse Resp BP BP Pulse Ox 09/25/21 16:49 16 99 09/25/21 15:18 16 99 09/25/21 14:40 16 100 09/25/21 13:45 36.7 C 74 16 117/75 100 09/25/21 13:03 67 97 09/25/21 12:58 64 115/67 97 09/25/21 12:57 36.6 C 20 09/25/21 12:53 63 95 09/25/21 12:48 61 128/67 97 09/25/21 12:43 69 97 09/25/21 12:38 67 98/50 L 96 09/25/21 12:33 59 L 98 09/25/21 12:31 56 L 115/53 L 09/25/21 12:29 63 93 09/25/21 12:28 62 96 09/25/21 12:27 20 09/25/21 12:23 64 97 09/25/21 12:19 60 115/55 L 09/25/21 12:18 60 96 09/25/21 12:13 64 97 09/25/21 12:08 62 96 09/25/21 12:03 62 97 09/25/21 11:58 61 158/73 H 96 09/25/21 11:57 36.7 C 20 09/25/21 11:53 64 97 09/25/21 11:48 62 118/59 L 96 09/25/21 11:47 18 09/25/21 11:37 63 20 120/75 09/25/21 11:27 62 16 110/73 09/25/21 11:17 64 16 111/65 09/25/21 11:13 66 98 09/25/21 11:11 60 18 131/77 09/25/21 11:08 78 96 09/25/21 11:03 71 98 09/25/21 10:58 65 96 09/25/21 10:57 36.6 C 64 20 126/71 09/25/21 07:00 75 118/74 09/25/21 06:06 36.7 C 18 09/25/21 05:47 36.7 C 18 09/25/21 05:37 92 H 117/75 Intake & Output 09/25/21 09/25/21 09/25/21 06:59 14:59 22:59 Intake Total 2800 / 3400 600 / 3400 Output Total 150 / 180 30 / 180 Balance 2650 / 3220 570 / 3220 Weight 71.271 kg 157 kg Intake: IV 1500 / 2100 600 / 2100 Acetaminophen 1,000 mg In 100 100 / 100 ml @ 400 mls/hr IV Q8H PRN Rx#: [id number] Lactated Ringer's 500 ml @ 999 1500 / 2000 500 / 2000 mls/hr IV .Q31M ONE Rx#: [id number] IV Perioperative 1300 / 1300 Output: Urine Amount (Catheter) 150 / 180 30 / 180 Patiño/Indwelling 150 / 180 30 / 180 Other: Weight Measurement Method Last Office Visit PE: General: Alert, orientedx3, NAD CVS: S1S2 RRR Lungs: CTAB Abd: soft, NT, ND, BS+, Incision\/ Dressing C/D/I No VB Ext: NT, no edema, SCD's on AP: 31 yo female s/p RLTCS , pod#0 VSS Afebrile doing well Low UOP H&H stable Increase IVF, PO Continue to monitor D/C patiño in am Results & Data ([facility]) Vital Signs (Past 12 Hours) Vital Signs Temp Pulse Pulse Resp BP BP Pulse Ox 09/25/21 16:49 16 99 09/25/21 15:18 16 99 09/25/21 14:40 16 100 09/25/21 13:45 36.7 C 74 16 117/75 100 09/25/21 13:03 67 97 09/25/21 12:58 64 115/67 97 09/25/21 12:57 36.6 C 20 09/25/21 12:53 63 95 09/25/21 12:48 61 128/67 97 09/25/21 12:43 69 97 09/25/21 12:38 67 98/50 L 96 09/25/21 12:33 59 L 98 09/25/21 12:31 56 L 115/53 L 09/25/21 12:29 63 93 09/25/21 12:28 62 96 09/25/21 12:27 20 09/25/21 12:23 64 97 09/25/21 12:19 60 115/55 L 09/25/21 12:18 60 96 09/25/21 12:13 64 97 09/25/21 12:08 62 96 09/25/21 12:03 62 97 09/25/21 11:58 61 158/73 H 96 09/25/21 11:57 36.7 C 20 09/25/21 11:53 64 97 09/25/21 11:48 62 118/59 L 96 09/25/21 11:47 18 09/25/21 11:37 63 20 120/75 09/25/21 11:27 62 16 110/73 09/25/21 11:17 64 16 111/65 09/25/21 11:13 66 98 09/25/21 11:11 60 18 131/77 09/25/21 11:08 78 96 09/25/21 11:03 71 98 09/25/21 10:58 65 96 09/25/21 10:57 36.6 C 64 20 126/71 09/25/21 07:00 75 118/74 09/25/21 06:06 36.7 C 18 09/25/21 05:47 36.7 C 18 09/25/21 05:37 92 H 117/75
[2021-09-25] MEDS ORDERED: D5W AND LACTATED RINGERS 1,000 ML IV SCH (17:45)
[2021-09-25] MEDS: DOCUSATE SODIUM 100 MG CAP PO SCH (20:19)
[2021-09-26] MEDS ORDERED: diphenhydrAMINE Capsule 25 MG CAP PO PRN (03:45)
[2021-09-26] MEDS ORDERED: MEPERIDINE HCL 50 MG/ML CARP IV PRN (03:45)
[2021-09-26] MEDS ORDERED: ONDANSETRON INJ 2 MG/ML 2 ML VIAL IV PRN (03:45)
[2021-09-26] MEDS ORDERED: diphenhydrAMINE 50 MG/ML VIAL IV PRN (03:45)
[2021-09-26] MEDS ORDERED: PROMETHAZINE HCL 25 MG in SODIUM CHLORIDE 0.9% 50 ML IV PRN (03:45)
[2021-09-26] MEDS: oxyCODONE/ACETAMINOPHEN 5mg/325mg TAB PO PRN ×4 (06:33→23:24)
[2021-09-26] MEDS: IBUPROFEN 600 MG TAB PO PRN ×4 (06:33→23:24)
[2021-09-26 06:51] LABS: Basophils # (auto) 0.01 K/uL (0-0.2); Basophils % (auto) 0.1 %; Eosinophils # (auto) 0.03 K/uL (0-0.5); Eosinophils % (auto) 0.4 %; Hematocrit (blood only) 28.3 % (37-47); Hemoglobin 9.7 g/dL (12.0-16.0); Immature Granulocytes # (auto) 0.02 K/uL (0.00-0.02); Immature Granulocytes % (auto) 0.2 %; Lymphocytes # (auto) 1.57 K/uL (1.2-3.4); Lymphocytes % (auto) 18.4 %; Mean Corpuscular Hemoglobin 29.1 pg (25-34); Mean Corpuscular Hgb Conc 34.3 g/dL (32-36); Mean Platelet Volume 11.5 fL (7.4-10.4); Monocytes # (auto) 0.45 K/uL (0.11-0.59); Monocytes % (auto) 5.3 %; Neutrophils # (auto) 6.45 K/uL (1.4-6.5); Neutrophils % (auto) 75.6 %; Platelet Count 142 K/uL (130-400); RDW Coefficient of Variation 15.3 % (11.5-14.5); RDW Standard Deviation 48.5 fL (36.4-46.3); Red Blood Count 3.33 M/uL (4.2-5.4); White Blood Count 8.53 K/uL (4.8-10.8)
[2021-09-26 07:13] LABS: Albumin Level 2.3 gm/dl (3.4-5.0); Bilirubin,Total 0.3 mg/dl (0.2-1.0); Calcium 7.6 mg/dl (8.5-10.1); Est GFR (Non-African American) 122.5 ml/min; Globulin 2.2 gm/dl (2.5-4.0); Potassium 3.7 mmol/L (3.5-5.1); Total Protein 4.5 gm/dl (6.0-8.3)
[2021-09-26] MEDS: PRENATAL VITAMIN 1 TAB PO SCH (09:07)
[2021-09-26] MEDS: DOCUSATE SODIUM 100 MG CAP PO SCH ×2 (09:07→19:52)
[2021-09-26] MEDS: SIMETHICONE 80 MG CHEW PO SCH ×4 (09:07→19:51)
[2021-09-26] MEDS: FERROUS SULFATE 325 MG TAB PO SCH (09:07)
--- NOTE | 2021-09-26 10:15 | Obstetrical Progress Note ---
Date of Service September 26, 2021 Subjective Ambulation: ambulating normally Voiding: no voiding problems Passing Gas:: Yes Diet Tolerance:: regular diet Lochia:: Small Feeding Type:: breast feeding Current Pain Level(1-10): 0 doing well Physical Exam Constitutional WD/WN, vitals as above comfortable abdomen soft and non-tender incisions c/d/i no edema neg Emerita's will increase diet/activity Results & Data ([facility]) Vital Signs (Past 12 Hours) Vital Signs Temp Pulse Resp BP Pulse Ox 09/26/21 07:45 36.8 C 66 16 113/74 94 09/26/21 03:50 36.7 C 65 18 103/69 97 09/26/21 03:25 18 93 09/26/21 02:25 18 94 09/26/21 01:10 18 94 09/26/21 00:20 18 95 09/25/21 23:40 36.6 C 62 18 110/72 97 09/25/21 23:10 18 95
[2021-09-26] MEDS ORDERED: bisacodyL 5 MG TABEC PO SCH (20:00)
[2021-09-27] MEDS: IBUPROFEN 600 MG TAB PO PRN (05:40)
[2021-09-27] MEDS: oxyCODONE/ACETAMINOPHEN 5mg/325mg TAB PO PRN (05:41)
[2021-09-27 07:26] LABS: Hematocrit (blood only) 29.8 % (37-47); Hemoglobin 9.7 g/dL (12.0-16.0)
[2021-09-27] MEDS: PRENATAL VITAMIN 1 TAB PO SCH (08:35)
[2021-09-27] MEDS: SIMETHICONE 80 MG CHEW PO SCH (08:35)
[2021-09-27] MEDS: DOCUSATE SODIUM 100 MG CAP PO SCH (08:36)
[2021-09-27] MEDS: FERROUS SULFATE 325 MG TAB PO SCH (08:36)
[2021-09-27] MEDS ORDERED: MAGNESIUM HYDROXIDE SUSP 30 ML UDC PO ONE (09:34)
--- NOTE | 2021-09-27 09:34 | Obstetrical Progress Note ---
Date of Service September 27, 2021 Assessment & Plan Admission and Anticipated Discharge Date Admission Date: September 25, 2021 Subjective Patient is seen and examined. She feels well, no complaints. Desires d/c today Pain is under control with oral meds. Ambulating without dizziness Voiding without difficulty Tolerating regular diet with out N&V Flatus + BM neg Bleeding is minimal No fever/ chills/ CP/ SOB/ N&V/ Leg pain Breast and bottle feeding without problems Vital Signs Temp Pulse Resp BP 09/26/21 23:15 37 C 73 18 109/64 Vital Signs Temp Pulse Resp BP Pulse Ox 09/26/21 23:15 37 C 73 18 109/64 09/26/21 19:40 37 C 73 18 110/73 97 09/26/21 12:05 36.8 C 77 16 111/80 96 Lab Results 09/25/21 09/25/21 09/25/21 Range/Units 05:40 05:40 16:26 WBC 9.68 12.78 H (4.8-10.8) K/uL RBC 4.34 3.84 L (4.2-5.4) M/uL Hgb 12.5 11.2 L (12.0-16.0) g/dL Hct 37.0 33.3 L (37-47) % MCV 85.3 86.7 (80-100) fL MCH 28.8 29.2 (25-34) pg MCHC 33.8 33.6 (32-36) g/dL RDW Std Deviation 48.1 H 48.6 H (36.4-46.3) fL RDW Coeff of Bebeto 15.2 H 15.2 H (11.5-14.5) % Plt Count 193 170 (130-400) K/uL MPV 12.3 H 12.3 H (7.4-10.4) fL Immature Gran % (Auto) 0.2 0.2 % Neut % (Auto) 61.4 69.3 % Lymph % (Auto) 29.6 22.8 % Branch % (Auto) 8.3 7.4 % Eos % (Auto) 0.4 0.2 % Baso % (Auto) 0.1 0.1 % Neut # (Auto) 5.94 8.86 H (1.4-6.5) K/uL Lymph # (Auto) 2.87 2.92 (1.2-3.4) K/uL Branch # (Auto) 0.80 H 0.94 H (0.11-0.59) K/uL Eos # (Auto) 0.04 0.02 (0-0.5) K/uL Baso # (Auto) 0.01 0.01 (0-0.2) K/uL Immature Gran # (Auto) 0.02 0.03 H (0.00-0.02) K/uL Sodium (136-145) mmol/L Potassium (3.5-5.1) mmol/L Chloride (98-107) mmol/L Carbon Dioxide (21-32) mmol/L Anion Gap (3-11) BUN (6-23) mg/dl Creatinine (0.6-1.2) mg/dl Est Cr Clr Drug Dosing ml/min Est GFR ( Amer) ml/min Est GFR (Non-Af Amer) ml/min Fasting Glucose (70-99) mg/dl Calcium (8.5-10.1) mg/dl Total Bilirubin (0.2-1.0) mg/dl AST (13-39) U/L ALT (7-52) U/L Alkaline Phosphatase (34-104) U/L Total Protein (6.0-8.3) gm/dl Albumin (3.4-5.0) gm/dl Globulin (2.5-4.0) gm/dl Albumin/Globulin Ratio (0.9-2) Blood Type O Positive Antibody Screen NEGATIVE 09/26/21 09/26/21 09/27/21 Range/Units 06:07 06:07 06:15 WBC 8.53 (4.8-10.8) K/uL RBC 3.33 L (4.2-5.4) M/uL Hgb 9.7 L 9.7 L (12.0-16.0) g/dL Hct 28.3 L 29.8 L (37-47) % MCV 85.0 (80-100) fL MCH 29.1 (25-34) pg MCHC 34.3 (32-36) g/dL RDW Std Deviation 48.5 H (36.4-46.3) fL RDW Coeff of Bebeto 15.3 H (11.5-14.5) % Plt Count 142 (130-400) K/uL MPV 11.5 H (7.4-10.4) fL Immature Gran % (Auto) 0.2 % Neut % (Auto) 75.6 % Lymph % (Auto) 18.4 % Branch % (Auto) 5.3 % Eos % (Auto) 0.4 % Baso % (Auto) 0.1 % Neut # (Auto) 6.45 (1.4-6.5) K/uL Lymph # (Auto) 1.57 (1.2-3.4) K/uL Branch # (Auto) 0.45 (0.11-0.59) K/uL Eos # (Auto) 0.03 (0-0.5) K/uL Baso # (Auto) 0.01 (0-0.2) K/uL Immature Gran # (Auto) 0.02 (0.00-0.02) K/uL Sodium 135 L (136-145) mmol/L Potassium 3.7 (3.5-5.1) mmol/L Chloride 106 (98-107) mmol/L Carbon Dioxide 23 (21-32) mmol/L Anion Gap 6 (3-11) BUN 8 (6-23) mg/dl Creatinine 0.56 L (0.6-1.2) mg/dl Est Cr Clr Drug Dosing 197.0 ml/min Est GFR ( Amer) 142.0 ml/min Est GFR (Non-Af Amer) 122.5 ml/min Fasting Glucose 77 (70-99) mg/dl Calcium 7.6 L (8.5-10.1) mg/dl Total Bilirubin 0.3 (0.2-1.0) mg/dl AST 20 (13-39) U/L ALT 10 (7-52) U/L Alkaline Phosphatase 115 H (34-104) U/L Total Protein 4.5 L (6.0-8.3) gm/dl Albumin 2.3 L (3.4-5.0) gm/dl Globulin 2.2 L (2.5-4.0) gm/dl Albumin/Globulin Ratio 1.0 (0.9-2) Blood Type Antibody Screen PE: General: Alert, orientedx3, NAD CVS: S1S2 RRR Lungs; CTAB Abd: soft, NT, ND, BS+, fundus firm, below Umbilicus Incision: Clean, dry, intact Perineum intact, Lochia rubra minimal Ext; NT, no edema AP: 31 yo s/p C Section, pod# 2 VSS Afebrile doing well Continue routine postop care Encourage ambulation, PO intake All questions were answered Discussed when to call D/C home , f/u in office Results & Data ([facility]) Vital Signs (Past 12 Hours) Vital Signs Temp Pulse Resp BP 09/26/21 23:15 37 C 73 18 109/64
[2021-09-27] MEDS ORDERED: bisacodyL 10 MG SUPP PR PRN (10:49)
--- NOTE | 2021-09-30 11:35 | Discharge Summary (DS) ---
DATE OF ADMISSION: 09/25/2021 DATE OF DISCHARGE: 09/27/2021 DETAILS OF ADMISSION: The patient is a 31-year-old -0-0-1, at 39 weeks of gestation, who has a prior history of and declines TOLAC/. She was scheduled for repeat on 09/25. She had a scheduled and delivered a viable female at 9:53 a.m. Her surgery was unc omplicated. See dictated op note for details. On postop period, the patient had low urine output, a bout 20-30 mL per hour. Her vital signs were stable and her H and H were stable. Her physical exam was unremarkable. She was given IV fluid bolus and increased IV fluid rate. Her urine output improv ed. On postop day #1, the patient was doing well, vital signs stable, afebrile. May was discontin ued. She was ambulated. Switched to regular diet. Her incision was clean, dry and intact. Abdomen was soft, nontender, nondistended. On postop day #2, the patient was doing well, vital signs stable , afebrile. Pain was under control with oral medications, ambulating without dizziness, voiding with out difficulty, tolerating regular diet, passing gas. Breast and bottle feeding. Vital signs stable, afebrile. Her H and H were 9.7/29.8. Her physical exam was unremarkable. Incision was clean, dry and intact. Abdomen was soft, nontender, nondistended. Extremities were nontender, no edema. She w anted to be discharged home on postoperative day #2. Discharge instructions were given. Prescriptio ns were written for pain. She is to be seen in the office in a week. Job ID: [id number]
== END 2021-09-27 13:15 | disposition home or self-care (01) | DRG 788 ==
LOC: 4S1 05:24 → EDSTATUS 07:30 → 4S2 13:30